=== PATIENT | male | born 1940 | race Caucasian/White ===

== ENCOUNTER 2016-06-22 21:41 | Emergency (ER) | payer MEDICARE, BC ==
[2016-06-22 22:13] VITALS: BP 140/65
--- NOTE | 2016-06-22 22:25 | EDM.PDOC ---
ED HPI Skin/Rash - General Chief Complaint: Laceration Stated Complaint: CUT LIP Time Seen by Provider: 06/22/16 22:17 Source: Reports: Patient History Limitations: Reports: No limitations - History of Present Illness INITIAL COMMENTS - FREE TEXT/NARRATIVE: This patient was playing pickle ball. He fell forward hitting his face against the ground and suffered a laceration to the inside of his lower lip. This happened just prior to arrival. There was no loss of consciousness he denies any neck pain - Related Data Allergies Allergy/AdvReac Type Severity Reaction Status Date / Time acetaminophen [From Percocet] Allergy Agitation Verified 06/22/16 22:08 oxycodone [From Percocet] Allergy Agitation Verified 06/22/16 22:08 Penicillins Allergy Itching Verified 06/22/16 22:08 Home Meds: Ambulatory Orders Medication Instructions Recorded Confirmed Aspirin [Lo-Dose Aspirin EC] 81 mg PO BEDTIME 06/22/16 06/22/16 Gabapentin [Gabapentin] 600 mg PO TID 06/22/16 06/22/16 Insulin Aspart [NovoLOG] 40 units SQ BID 06/22/16 06/22/16 Insulin Glarg,Human.Rec.Analog 20 unit SQ BID 06/22/16 06/22/16 [Lantus] Lisinopril [Lisinopril] 40 mg PO DAILY 06/22/16 06/22/16 Metoprolol Tartrate [Metoprolol 25 mg PO BID 06/22/16 06/22/16 Tartrate] metFORMIN HCl [Metformin HCl] 500 mg PO DAILY 06/22/16 06/22/16 Past Medical History Cardiovascular History: Reports: Afib, Hypertension Respiratory History: Reports: Bronchitis, recurrent Musculoskeletal History: Reports: Arthritis Endocrine/Metabolic History: Reports: Diabetes, type II - Infectious Disease History Infectious Disease History: Reports: Chicken pox, Measles, Mumps - Past Surgical History HEENT Surgical History: Reports: Cataract surgery, Laser surgery, Tonsillectomy Respiratory Surgical History: Reports: Other (see below) Other Respiratory Surgeries/Procedures: deviated septum GI Surgical History: Reports: Appendectomy, Cholecystectomy, Colostomy Social & Family History - Tobacco Use Smoking Status *Q: Never Smoker - Recreational Drug Use Recreational Drug Use: No ED ROS GENERAL - Review of Systems Review Of Systems: ROS reveals no pertinent complaints other than HPI. ED EXAM, SKIN/RASH Exam: See Below Exam Limited By: No limitations General Appearance: alert, WD/WN, no apparent distress Eye Exam: bilateral eye: normal inspection Throat/Mouth: Other (There is an irregular shallow laceration transverse approximately 1.5 cm long of the pupil surface of the lower well off the vermilion order. It does not appear to need suturing.) Course - Vital Signs Last Recorded V/S: Last Vital Signs Temp 36.2 C 06/22/16 22:15 Pulse 66 06/22/16 22:15 Resp 16 06/22/16 22:15 BP 140/65 06/22/16 22:15 Pulse Ox 99 06/22/16 22:15 Departure - Departure Time of Disposition: 22:23 Disposition: Home, Self-Care 01 Clinical Impression: Laceration of mouth Instructions: Mouth Laceration, [id number] Referrals: Cristofer West MD [Primary Care Provider] - Forms: ED Department Discharge Additional Instructions: The laceration in her mouth should heal just fine without suturing. Just wash your mouth out with salt water several times that day. One quarter teaspoon of regular table salt in 8 ounces of water is about right. It's just enough that she can taste the salt and this will keep it from burning. Avoid acidic or salty foods for a few days. And be sure to wash your mouth out after eating
== END 2016-06-22 22:45 | disposition home or self-care (01) ==
LOC: JP.ED 21:41
DX: S01.511A Laceration without foreign body of lip, initial encounter (principal); E11.9 Type 2 diabetes mellitus without complications; I48.91 Unspecified atrial fibrillation; Z88.0 Allergy status to penicillin; Z88.8 Allergy status to other drugs, medicaments and biological substances; Z88.5 Allergy status to narcotic agent; Z79.84 Long term (current) use of oral hypoglycemic drugs; Z90.49 Acquired absence of other specified parts of digestive tract; Z98.890 Other specified postprocedural states; W19.XXXA Unspecified fall, initial encounter
CPT/HCPCS: 99282; 99283

== ENCOUNTER 2017-06-02 15:52 | Emergency (ER) | payer MEDICARE, BC ==
[2017-06-02] MEDS ORDERED: Ondansetron 4 MG/2 ML SDV IVPUSH ONE (16:52)
[2017-06-02] MEDS ORDERED: Sodium Chloride 0.9% 10 ML Syringe FLUSH PRN (16:52)
--- NOTE | 2017-06-02 16:56 | EDM.PDOC ---
ED HPI GENERAL MEDICAL PROBLEM - General Chief Complaint: Abdominal Pain Stated Complaint: abd pain Time Seen by Provider: 06/02/17 16:47 Source of Information: Reports: Patient, Family, RN Notes Reviewed History Limitations: Reports: No Limitations - History of Present Illness INITIAL COMMENTS - FREE TEXT/NARRATIVE: 76-year-old gentleman presents to the emergency department today with complaint of abdominal pain, he states he's had abdominal pain for the last couple of days has progressively gotten worse it is predominantly in the left lower quadrant he had normal bowel movements today however did not pass any gas he feels nauseated no fevers does have a history of a cholecystectomy - Related Data Allergies Allergy/AdvReac Type Severity Reaction Status Date / Time acetaminophen [From Percocet] Allergy Agitation Verified 06/22/16 22:08 oxycodone [From Percocet] Allergy Agitation Verified 06/22/16 22:08 Penicillins Allergy Itching Verified 06/22/16 22:08 Home Meds: Home Meds Aspirin [Lo-Dose Aspirin EC] 81 mg PO BEDTIME 06/22/16 [History] Gabapentin [Gabapentin] 600 mg PO TID 06/22/16 [History] Insulin Aspart [NovoLOG] 40 units SQ BID 06/22/16 [History] Insulin Glarg,Human.Rec.Analog [Lantus] 20 unit SQ BID 06/22/16 [History] Lisinopril [Lisinopril] 40 mg PO DAILY 06/22/16 [History] Metoprolol Tartrate [Metoprolol Tartrate] 25 mg PO BID 06/22/16 [History] metFORMIN HCl [Metformin HCl] 500 mg PO DAILY 06/22/16 [History] Past Medical History Cardiovascular History: Reports: Afib, Hypertension Respiratory History: Reports: Bronchitis, Recurrent Musculoskeletal History: Reports: Arthritis Endocrine/Metabolic History: Reports: Diabetes, Type II - Infectious Disease History Infectious Disease History: Reports: Chicken Pox, Measles, Mumps - Past Surgical History HEENT Surgical History: Reports: Cataract Surgery, Laser Surgery, Tonsillectomy Respiratory Surgical History: Reports: Other (See Below) GI Surgical History: Reports: Appendectomy, Cholecystectomy, Colostomy Social & Family History - Tobacco Use Smoking Status *Q: Never Smoker - Recreational Drug Use Recreational Drug Use: No ED ROS GENERAL - Review of Systems Review Of Systems: See Below Constitutional: Denies: Fever, Chills HEENT: Reports: No Symptoms Respiratory: Reports: No Symptoms Cardiovascular: Reports: No Symptoms GI/Abdominal: Reports: Abdominal Pain, Nausea. Denies: Constipation, Diarrhea, Flatus, Vomiting : Reports: No Symptoms Musculoskeletal: Reports: No Symptoms Skin: Reports: Dryness Neurological: Reports: No Symptoms ED EXAM, GI/ABD - Physical Exam Exam: See Below Text/Narrative:: General: Male, not in any distress, alert and oriented x3 HEENT: head is atraumatic normocephalic, eyes pupils equal round reactive to light, sclera clear no conjunctivitis appreciated. Ears tympanic membranes clear and helm landmarks and light reflex are present bilaterally canals are clear. Nose no septal deviation, nares are clear, no blood present. Mouth mucosa is moist and pink no erythema or exudate noted in soft palate, tongue is midline uvula is midline, dentition is intact. Neck: Supple no thyromegaly no tracheal deviation. Nodes: Cervical nodes subclavicular nodes nontender no palpable lymphadenopathy noted. Lungs: clear to auscultation bilaterally with symmetrical respirations, no adventitious noise appreciated. CV: Regular rate and rhythm S1 and S2 appreciated no murmurs rubs or gallops noted. Abdomen: Soft, tender to palpation left lower quadrant, no palpable masses or organomegaly appreciated, no distention no guarding bowel sounds are present, . Neuro: Cranial nerves II through XII grossly intact Skin: Warm and dry, intact Extremities: No lower extremity edema appreciated, Course - Vital Signs Last Recorded V/S: Last Vital Signs Temp 96.9 F 06/02/17 16:23 Pulse 66 06/02/17 17:52 Resp 16 06/02/17 17:52 BP 180/85 H 06/02/17 17:52 Pulse Ox 97 06/02/17 17:52 - Orders/Labs/Meds Orders: Active Orders 24 hr Category Date Time Status EKG Documentation Completion [RC] ASDIRECTED Care 06/02/17 17:37 Active Peripheral IV Care [RC] . DIRECTED Care 06/02/17 16:52 Active Abdomen Pelvis w Cont [CT] Urgent Exams 06/02/17 16:52 Taken Heparin Sodium/D5W [Heparin 25,000 Units in D5W 500 ML] Med 06/02/17 18:00 Ordered 25,000 units in 500 ml IV TITRATE Iopamidol [Isovue-300 (61%)] Med 06/02/17 17:01 Active 150 ml IV . DIRECTED PRN Sodium Chloride 0.9% [Normal Saline] 1,000 ml Med 06/02/17 17:00 Active IV ASDIRECTED Sodium Chloride 0.9% [Normal Saline] 85 ml Med 06/02/17 17:15 Active IV ASDIRECTED Sodium Chloride 0.9% [Saline Flush] Med 06/02/17 16:52 Active 10 ml FLUSH ASDIRECTED PRN Peripheral IV Insertion Adult [OM.PC] Urgent Oth 06/02/17 16:52 Ordered EKG 12 Lead [EK] Stat Ther 06/02/17 17:37 Ordered Medication Orders Sodium Chloride (Normal Saline) 1,000 mls @ 500 mls/hr IV ASDIRECTED CASEY Last Admin: 06/02/17 17:04 Dose: 500 mls/hr Sodium Chloride (Normal Saline) 85 mls @ 3.5 mls/sec IV ASDIRECTED CASEY Last Admin: 06/02/17 17:35 Dose: 3.5 mls/sec Heparin Sodium/Dextrose (Heparin 25,000 Units In D5w 500 Ml) 25,000 units in 500 mls @ 26.736 mls/hr IV TITRATE CASEY; 12 UNITS/KG/HR PRN Reason: Protocol Iopamidol (Isovue-300 (61%)) 150 ml IV . DIRECTED PRN PRN Reason: RADIOLOGY EXAM Stop: 06/03/17 17:02 Last Admin: 06/02/17 17:35 Dose: 150 ml Sodium Chloride (Saline Flush) 10 ml FLUSH ASDIRECTED PRN PRN Reason: Keep Vein Open Labs: Laboratory Tests 06/02/17 06/02/17 06/02/17 Range/Units 16:52 17:05 17:05 WBC 7.6 (4.5-11.0) K/uL RBC 5.12 (4.30-5.90) M/uL Hgb 16.3 H (12.0-15.0) g/dL Hct 45.2 (40.0-54.0) % MCV 88 (80-98) fL MCH 32 H (27-31) pg MCHC 36 (32-36) % Plt Count 147 L (150-400) K/uL Neut % (Auto) 70 H (36-66) % Lymph % (Auto) 19 L (24-44) % [place] % (Auto) 9 H (2-6) % Eos % (Auto) 1 L (2-4) % Baso % (Auto) 0 (0-1) % Sodium 134 L (140-148) mmol/L Potassium 4.1 (3.6-5.2) mmol/L Chloride 99 L (100-108) mmol/L Carbon Dioxide 26 (21-32) mmol/L Anion Gap 13.1 (5.0-14.0) mmol/L BUN 15 (7-18) mg/dL Creatinine 0.9 (0.8-1.3) mg/dL Est Cr Clr Drug Dosing 86.06 mL/min Estimated GFR (MDRD) > 60 (>60) Glucose 179 H (74-106) mg/dL Lactic Acid 2.0 (0.4-2.0) mmol/L Calcium 9.1 (8.5-10.1) mg/dL Total Bilirubin 1.0 (0.2-1.0) mg/dL AST 46 H (15-37) U/L ALT 72 (12-78) U/L Alkaline Phosphatase 67 (46-116) U/L Troponin I 0.236 H* (0.000-0.056) ng/mL Total Protein 6.6 (6.4-8.2) g/dL Albumin 3.5 (3.4-5.0) g/dL Globulin 3.1 (2.3-3.5) g/dL Albumin/Globulin Ratio 1.1 L (1.2-2.2) Lipase 154 (73-393) U/L Urine Color Urine Appearance Urine pH (4.5-8.0) Ur Specific [place] (1.008-1.030) Urine Protein (NEGATIVE) mg/dL Urine Glucose (UA) (NEGATIVE) mg/dL Urine Ketones (NEGATIVE) mg/dL Urine Occult Blood (NEGATIVE) Urine Nitrite (NEGAITVE) Urine Bilirubin (NEGATIVE) Urine Urobilinogen (NORMAL) mg/dL Ur Leukocyte Esterase (NEGATIVE) Urine RBC (0-5) Urine WBC (0-5) Ur Epithelial Cells Amorphous Sediment Urine Bacteria Urine Mucus 06/02/17 Range/Units 17:51 WBC (4.5-11.0) K/uL RBC (4.30-5.90) M/uL Hgb (12.0-15.0) g/dL Hct (40.0-54.0) % MCV (80-98) fL MCH (27-31) pg MCHC (32-36) % Plt Count (150-400) K/uL Neut % (Auto) (36-66) % Lymph % (Auto) (24-44) % [place] % (Auto) (2-6) % Eos % (Auto) (2-4) % Baso % (Auto) (0-1) % Sodium (140-148) mmol/L Potassium (3.6-5.2) mmol/L Chloride (100-108) mmol/L Carbon Dioxide (21-32) mmol/L Anion Gap (5.0-14.0) mmol/L BUN (7-18) mg/dL Creatinine (0.8-1.3) mg/dL Est Cr Clr Drug Dosing mL/min Estimated GFR (MDRD) (>60) Glucose (74-106) mg/dL Lactic Acid (0.4-2.0) mmol/L Calcium (8.5-10.1) mg/dL Total Bilirubin (0.2-1.0) mg/dL AST (15-37) U/L ALT (12-78) U/L Alkaline Phosphatase (46-116) U/L Troponin I (0.000-0.056) ng/mL Total Protein (6.4-8.2) g/dL Albumin (3.4-5.0) g/dL Globulin (2.3-3.5) g/dL Albumin/Globulin Ratio (1.2-2.2) Lipase (73-393) U/L Urine Color Yellow Urine Appearance Clear Urine pH 5.0 (4.5-8.0) Ur Specific [place] 1.015 (1.008-1.030) Urine Protein Negative (NEGATIVE) mg/dL Urine Glucose (UA) 100 H (NEGATIVE) mg/dL Urine Ketones Negative (NEGATIVE) mg/dL Urine Occult Blood Negative (NEGATIVE) Urine Nitrite Negative (NEGAITVE) Urine Bilirubin Negative (NEGATIVE) Urine Urobilinogen Normal (NORMAL) mg/dL Ur Leukocyte Esterase Negative (NEGATIVE) Urine RBC 0-5 (0-5) Urine WBC 0-5 (0-5) Ur Epithelial Cells Rare Amorphous Sediment Few Urine Bacteria Not seen Urine Mucus Few Meds: Medications Generic Name Dose Route Start Last Admin Trade Name Joelle PRN Reason Stop Dose Admin Sodium Chloride 1,000 mls @ 500 mls/hr 06/02/17 17:00 06/02/17 17:04 Normal Saline IV 500 mls/hr ASDIRECTED CASEY Administration Sodium Chloride 85 mls @ 3.5 mls/sec 06/02/17 17:15 06/02/17 17:35 Normal Saline IV 3.5 mls/sec ASDIRECTED CASEY Administration Heparin Sodium/Dextrose 25,000 units in 500 mls @ 26.736 mls/hr 06/02/17 18: 00 Heparin 25,000 Units In D5w 500 Ml IV TITRATE CASEY Protocol 12 UNITS/KG/HR Iopamidol 150 ml 06/02/17 17:01 06/02/17 17:35 Isovue-300 (61%) IV 06/03/17 17:02 150 ml . DIRECTED PRN Administration RADIOLOGY EXAM Sodium Chloride 10 ml 06/02/17 16:52 Saline Flush FLUSH ASDIRECTED PRN Keep Vein Open Discontinued Medications Generic Name Dose Route Start Last Admin Trade Name Joelle PRN Reason Stop Dose Admin Aspirin 324 mg 06/02/17 17:48 Aspirin PO 06/02/17 17:49 ONETIME ONE Clopidogrel Bisulfate 300 mg 06/02/17 17:48 Plavix PO 06/02/17 17:49 ONETIME ONE Heparin Sodium (Porcine) 0 units 06/02/17 17:48 Heparin Sodium IVPUSH 06/02/17 17:49 .BOLUS ONE Metoprolol Tartrate 25 mg 06/02/17 17:48 Lopressor PO 06/02/17 17:49 ONETIME ONE Metoprolol Tartrate Confirm 06/02/17 18:08 Lopressor Administered 06/02/17 18:09 Dose 25 mg .ROUTE .STK-MED ONE Ondansetron HCl 4 mg 06/02/17 16:52 06/02/17 17:04 Zofran IVPUSH 06/02/17 16:53 4 mg ONETIME ONE Administration Sodium Chloride 10 ml 06/02/17 17:01 06/02/17 17:35 Saline Flush FLUSH 06/02/17 17:02 10 ml ONETIME ONE Administration Departure - Departure Time of Disposition: 18:14 Disposition: DC/Tfer to Acute Hospital 02 Condition: Fair Clinical Impression: Elevated troponin, Superior mesenteric vein thrombosis - Discharge Information Referrals: Cristofer West MD [Primary Care Provider] - Forms: ED Department Discharge - My Orders Last 24 Hours: My Active Orders 06/02/17 16:52 Peripheral IV Care [RC] . DIRECTED Abdomen Pelvis w Cont [CT] Urgent Sodium Chloride 0.9% [Saline Flush] 10 ml FLUSH ASDIRECTED PRN Peripheral IV Insertion Adult [OM.PC] Urgent 06/02/17 17:00 Sodium Chloride 0.9% [Normal Saline] 1,000 ml IV ASDIRECTED 06/02/17 17:01 Iopamidol [Isovue-300 (61%)] 150 ml IV . DIRECTED PRN 06/02/17 17:15 Sodium Chloride 0.9% [Normal Saline] 85 ml IV ASDIRECTED 06/02/17 17:37 EKG Documentation Completion [RC] ASDIRECTED EKG 12 Lead [EK] Stat 06/02/17 18:00 Heparin Sodium/D5W [Heparin 25,000 Units in D5W 500 ML] 25,000 units in 500 ml IV TITRATE - Assessment/Plan Last 24 Hours: My Active Orders 06/02/17 16:52 Peripheral IV Care [RC] . DIRECTED Abdomen Pelvis w Cont [CT] Urgent Sodium Chloride 0.9% [Saline Flush] 10 ml FLUSH ASDIRECTED PRN Peripheral IV Insertion Adult [OM.PC] Urgent 06/02/17 17:00 Sodium Chloride 0.9% [Normal Saline] 1,000 ml IV ASDIRECTED 06/02/17 17:01 Iopamidol [Isovue-300 (61%)] 150 ml IV . DIRECTED PRN 06/02/17 17:15 Sodium Chloride 0.9% [Normal Saline] 85 ml IV ASDIRECTED 06/02/17 17:37 EKG Documentation Completion [RC] ASDIRECTED EKG 12 Lead [EK] Stat 06/02/17 18:00 Heparin Sodium/D5W [Heparin 25,000 Units in D5W 500 ML] 25,000 units in 500 ml IV TITRATE Plan: Assessment Acuity = acute Site and laterality = elevated troponin with thrombus in superior mesenteric vein Etiology = unclear etiology Manifestations = left lower quadrant pain Location of injury = Home Lab values = sodium low at 134 consistent hyponatremia, CBC is unremarkable, troponin elevated 0.236 EKG demonstrates normal sinus rhythm CT scan shows filling defect and superior mesenteric vein with bowel thickening: Left lower quadrant Plan Patient was given aspirin Plavix 4000 unit bolus heparin heparin drip will be initiated in route via EMS services called discussed case with Dr. Pena hospitalist stonemason [facility] kindly accepted the patient in transport will be transported via EMS ground This note was dictated using [employer] voice recognition software please call with any questions on syntax or kristy.
[2017-06-02] MEDS ORDERED: Sodium Chloride 0.9% 1,000 ML IV SCH (17:00)
[2017-06-02] MEDS ORDERED: Iopamidol 612 MG/ML 150 ML Bottle IV PRN (17:01)
[2017-06-02] MEDS: Sodium Chloride 0.9% 10 ML Syringe FLUSH ONE ×2 (17:04→17:35)
[2017-06-02] MEDS ORDERED: Aspirin 81 MG Tab.Chew PO ONE (17:48)
[2017-06-02] MEDS ORDERED: Metoprolol Tartrate 50 MG Tab PO ONE (17:48)
[2017-06-02] MEDS ORDERED: Heparin Sodium 5,000 Units/ML Vial IVPUSH ONE (17:48)
[2017-06-02] MEDS ORDERED: Clopidogrel 75 MG Tab PO ONE (17:48)
[2017-06-02] MEDS ORDERED: Heparin Sodium/D5W 25,000 UNITS/500 ML BAG IV SCH (18:00)
[2017-06-02] MEDS ORDERED: Metoprolol Tartrate 25 MG Tab ONE (18:08)
[2017-06-02 18:13] VITALS: BP 187/95
[2017-06-02] MEDS ORDERED: HYDROmorphone 1 MG/ML Syringe IVPUSH ONE (18:17)
== END 2017-06-02 18:59 ==
LOC: JP.ED 15:52
DX: I81 Portal vein thrombosis (principal); R79.89 Other specified abnormal findings of blood chemistry; E11.9 Type 2 diabetes mellitus without complications; I10 Essential (primary) hypertension; Z88.0 Allergy status to penicillin; Z88.8 Allergy status to other drugs, medicaments and biological substances; Z79.899 Other long term (current) drug therapy; Z79.4 Long term (current) use of insulin; Z79.82 Long term (current) use of aspirin; Z88.6 Allergy status to analgesic agent
CPT/HCPCS: 36415; 74177; 80053; 81001; 83605; 83690; 84484; 85025; 93005; 96361; 96374; 96375; 99285; A9270; J1170; J1644; J2405; J7030; J7040; J7050; 93010

== ENCOUNTER 2020-10-12 16:15 | Emergency (ER) | payer MEDICARE, BC ==
--- NOTE | 2020-10-12 17:43 | EDM.PDOC ---
ED HPI GENERAL MEDICAL PROBLEM - General Chief Complaint: General Stated Complaint: DIABETIC- WEAKNESS IN RIGHT LEG Time Seen by Provider: 10/12/20 17:15 Source of Information: Reports: Patient, RN History Limitations: Reports: No Limitations - History of Present Illness INITIAL COMMENTS - FREE TEXT/NARRATIVE: States he had a near fall this morning. He has been concerned that over the last couple of days he has had some weakness in his right lower leg. A year ago he had done some physical therapy and he thinks this had done him well. He has not noticed any recent changes in his cognition, speech, coordination, balance or functionality. His was concerned today that he was "dragging "his right foot behind him when he stood to walk to go to the bathroom. Patient's primary care provider is Dr. Kemp. He follows with him regularly. Patient does have a walker or cane but does not currently use one at this time. Onset: Gradual Onset Date: 10/10/20 Duration: Day(s):, Getting Worse (In his opinion it is more obvious to him) Location: Reports: Lower Extremity, Right Quality: Reports: Other (Weakness) Severity: Mild Improves with: Reports: None Worsens with: Reports: None Context: Reports: Exercise Associated Symptoms: Reports: Weakness. Denies: Confusion, Chest Pain, Cough, Diaphoresis, Fever/Chills, Headaches, Loss of Appetite, Malaise, Nausea/Vomiting Bilateral Foot Pain Score (Numeric/FACES): 8 - Related Data Allergies Allergy/AdvReac Type Severity Reaction Status Date / Time acetaminophen [From Percocet] Allergy Agitation Verified 10/12/20 16:29 oxycodone [From Percocet] Allergy Agitation Verified 10/12/20 16:29 Penicillins Allergy Itching Verified 10/12/20 16:29 Home Meds: Home Meds Aspirin [Lo-Dose Aspirin EC] 81 mg PO BEDTIME 06/22/16 [History] Gabapentin 600 mg PO BID 06/22/16 [History] Insulin Aspart [NovoLOG] 36 units SQ TID 06/22/16 [History] Doxazosin Mesylate [Cardura] 8 mg PO DAILY 10/12/20 [History] Insulin Degludec [Tresiba Flextouch U-200] 66 unit SQ Q12H 10/12/20 [History] Metoprolol Succinate [Toprol Xl] 50 mg PO BID 10/12/20 [History] Nitroglycerin [Nitrostat] 0.4 mg SL ASDIRECTED 10/12/20 [History] Rosuvastatin [Crestor] 10 mg PO DAILY 10/12/20 [History] Past Medical History Cardiovascular History: Reports: Afib, CAD, Hypertension, NH, Stents Respiratory History: Reports: Bronchitis, Recurrent Musculoskeletal History: Reports: Arthritis, Other (See Below) Other Musculoskeletal History: peripherial neuropathy Neurological History: Reports: Neuropathy, Peripheral Psychiatric History: Reports: Depression Endocrine/Metabolic History: Reports: Diabetes, Type II, Obesity/BMI 30+, Other (See Below) Other Endocrine/Metabolic History: mesenteric vein thrombosis - Infectious Disease History Infectious Disease History: Reports: Chicken Pox, Measles, Mumps - Past Surgical History HEENT Surgical History: Reports: Cataract Surgery, Laser Surgery, Tonsillectomy Respiratory Surgical History: Reports: Other (See Below) Other Respiratory Surgeries/Procedures: deviated septum GI Surgical History: Reports: Appendectomy, Cholecystectomy, Colostomy Social & Family History - Tobacco Use Tobacco Use Status *Q: Never Tobacco User Second Hand Smoke Exposure: No - Caffeine Use Caffeine Use: Reports: None - Recreational Drug Use Recreational Drug Use: No ED ROS GENERAL - Review of Systems Review Of Systems: See Below Constitutional: Reports: Weakness. Denies: Fatigue, Night Sweats, Diaphoresis HEENT: Reports: No Symptoms Respiratory: Reports: No Symptoms Cardiovascular: Reports: No Symptoms, Edema (Bilateral lower extremity) Endocrine: Reports: No Symptoms GI/Abdominal: Reports: No Symptoms : Reports: No Symptoms Musculoskeletal: Reports: Foot Pain (Neuropathy) Neurological: Reports: No Symptoms. Denies: Confusion, Dizziness, Headache, Numbness Psychiatric: Reports: No Symptoms Hematologic/Lymphatic: Reports: No Symptoms Immunologic: Reports: No Symptoms ED EXAM, GENERAL - Physical Exam Exam: See Below Exam Limited By: No Limitations General Appearance: Alert, WD/WN, No Apparent Distress Eye Exam: Bilateral Eye: EOMI, Normal Inspection, PERRL Ear Exam: Bilateral Ear: Auricle Normal, Canal Normal, TM normal Nose: Normal Inspection, Normal Mucosa, No Blood Throat/Mouth: Normal Inspection, Normal Lips, Normal Teeth, Normal Gums, Normal Oropharynx, Normal Voice, No Airway Compromise Head: Atraumatic, Normocephalic Neck: Normal Inspection, Supple, Non-Tender, Full Range of Motion Respiratory/Chest: No Respiratory Distress, Lungs Clear, Normal Breath Sounds, No Accessory Muscle Use, Chest Non-Tender Cardiovascular: Normal Peripheral Pulses, Regular Rate, Rhythm Peripheral Pulses: 2+: Carotid (L), Carotid (R), Radial (L), Radial (R), Posterior Tibial (L), Posterior Tibial (R) GI/Abdominal: Normal Bowel Sounds, Soft, Non-Tender Back Exam: Normal Inspection, Full Range of Motion Extremities: Pedal Edema. No: Kiki's Sign, Leg Pain Neurological: Alert, Oriented, CN II-XII Intact, Normal Cognition, Normal Reflexes, No Motor/Sensory Deficits Psychiatric: Normal Affect, Normal Mood Skin Exam: Warm, Dry, Intact, Normal Color, No Rash Lymphatic: No Adenopathy Course - Vital Signs Last Recorded V/S: Last Vital Signs Temp 36.5 C 10/12/20 16:49 Pulse 76 10/12/20 17:54 Resp 16 10/12/20 16:49 BP 167/81 H 10/12/20 17:54 Pulse Ox 95 10/12/20 17:54 - Orders/Labs/Meds Labs: Laboratory Tests 10/12/20 10/12/20 10/12/20 Range/Units 17:37 17:45 17:45 WBC 5.7 (4.5-11.0) K/uL RBC 4.51 (4.30-5.90) M/uL Hgb 14.2 D (12.0-15.0) g/dL Hct 41.8 (40.0-54.0) % MCV 93 (80-98) fL MCH 32 H (27-31) pg MCHC 34 (32-36) % Plt Count 129 L (150-400) K/uL Neut % (Auto) 63.5 (36-66) % Lymph % (Auto) 21.5 L (24-44) % [place] % (Auto) 12.4 H (2-6) % Eos % (Auto) 2.3 (2-4) % Baso % (Auto) 0.3 (0-1) % Sodium 141 (140-148) mmol/L Potassium 4.2 (3.6-5.2) mmol/L Chloride 103 (100-108) mmol/L Carbon Dioxide 26 (21-32) mmol/L Anion Gap 12.0 (5.0-14.0) mmol/L BUN 16 (7-18) mg/dL Creatinine 1.0 (0.8-1.3) mg/dL Est Cr Clr Drug Dosing 75.95 mL/min Estimated GFR (MDRD) > 60 (>60) Glucose 128 H (74-106) mg/dL Calcium 9.0 (8.5-10.1) mg/dL Urine Color Yellow (YELLOW) Urine Appearance Clear (CLEAR) Urine pH 6.0 (5.0-8.0) Ur Specific [place] 1.020 (1.008-1.030) Urine Protein Trace H (NEGATIVE) mg/dL Urine Glucose (UA) Negative (NEGATIVE) mg/dL Urine Ketones Negative (NEGATIVE) mg/dL Urine Occult Blood Negative (NEGATIVE) Urine Nitrite Negative (NEGATIVE) Urine Bilirubin Negative (NEGATIVE) Urine Urobilinogen 0.2 (0.2-1.0) EU/dL Ur Leukocyte Esterase Negative (NEGATIVE) Results returned without concern. Glucose slight elevation in head slight protein in his urine with his current diagnoses this is not concerning. Long conversation with patient and his patient wishes to go home and follow-up with primary care in the office. Patient would do well with physical therapy for some strengthening. He feels this would work well for him. Patient states he will use a cane or walker at home as appropriate. Departure - Departure Time of Disposition: 18:44 Disposition: Home, Self-Care 01 Condition: Good Clinical Impression: Weakness - Discharge Information *PRESCRIPTION DRUG MONITORING PROGRAM REVIEWED*: Not Applicable *COPY OF PRESCRIPTION DRUG MONITORING REPORT IN PATIENT GARIMA: Not Applicable Instructions: Weakness, [id number] Referrals: Cristofer West MD [Primary Care Provider] - Forms: ED Department Discharge Additional Instructions: Patient will use walker or cane due to weakness on right lower extremity. Patient will follow up with primary care provider for physical therapy referral. Sepsis Event Note (ED) - Evaluation Sepsis Screening Result: No Definite Risk - Focused Exam Vital Signs: Vital Signs Temp Pulse Resp BP Pulse Ox 10/12/20 17:54 76 167/81 H 95 10/12/20 16:49 36.5 C 84 16 170/93 H 97 10/12/20 16:31 36.5 C 84 16 170/93 H 97
[2020-10-12 17:56] VITALS: BP 167/81; PULSE 76
== END 2020-10-12 18:44 | disposition home or self-care (01) ==
LOC: JP.ED 16:15
DX: R53.1 Weakness (principal); I48.91 Unspecified atrial fibrillation; I25.10 Atherosclerotic heart disease of native coronary artery without angina pectoris; I10 Essential (primary) hypertension; I25.2 Old myocardial infarction; E11.42 Type 2 diabetes mellitus with diabetic polyneuropathy; M19.90 Unspecified osteoarthritis, unspecified site; E66.9 Obesity, unspecified; Z88.6 Allergy status to analgesic agent; Z88.5 Allergy status to narcotic agent; Z88.0 Allergy status to penicillin; Z95.5 Presence of coronary angioplasty implant and graft; Z79.82 Long term (current) use of aspirin; Z68.32 Body mass index [BMI] 32.0-32.9, adult
CPT/HCPCS: 36415; 80048; 81003; 85025; 99284

== ENCOUNTER 2021-03-25 12:20 | Emergency (ER) | payer MEDICARE, BC ==
[2021-03-25] MEDS ORDERED: Methocarbamol 500 MG Tab PO ONE (12:40)
[2021-03-25] MEDS ORDERED: 50% Dextrose in Water 50 ML Syringe IVPUSH PRN (13:48)
[2021-03-25] MEDS ORDERED: Glucagon,Human Recombinant 1 MG Vial IM PRN (13:48)
[2021-03-25] MEDS ORDERED: Insulin Regular, Human 100 Units/ML 3 ML Vial SUBCUT ONE (13:48)
--- NOTE | 2021-03-25 14:07 | CR ---
Lumbar Spine 2 or 3V CLINICAL HISTORY: Low back pain FINDINGS: The vertebral body heights are maintained. There is some diffuse spondylosis. There is disc space narrowing at L2-3, L3-4 and L5-S1. Patient has a levoscoliosis. 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
[2021-03-25] MEDS ORDERED: Ketorolac 30 MG/ML SDV IVPUSH ONE (14:51)
[2021-03-25 15:37] VITALS: BP 153/94; PULSE 87
--- NOTE | 2021-03-25 16:02 | EDM.PDOC ---
ED HPI GENERAL MEDICAL PROBLEM - General Chief Complaint: Back Pain or Injury Stated Complaint: [facility] Time Seen by Provider: 03/25/21 12:23 Source of Information: Reports: Patient, EMS History Limitations: Reports: No Limitations - History of Present Illness INITIAL COMMENTS - FREE TEXT/NARRATIVE: Cheryl is a 80-year-old male presenting to the ED via [facility] for evaluation of fall on the ice and low back pain. Patient was taking the garbage to his truck and had to go around to the passenger side slipping on the ice and falling under the truck. He had acute onset of low back pain and had to crawl back into the garage where he could call EMS. The patient has a history for diabetes and has peripheral neuropathy. He is fallen several times in the last couple of weeks due to the neuropathy. He is complaining of low back pain but denies any other symptoms at this time. Lower Back Pain Score (Numeric/FACES): 4 - Related Data Allergies Allergy/AdvReac Type Severity Reaction Status Date / Time acetaminophen [From Percocet] Allergy Agitation Verified 03/25/21 12:27 oxycodone [From Percocet] Allergy Agitation Verified 03/25/21 12:27 Penicillins Allergy Itching Verified 03/25/21 12:27 Home Meds: Home Meds Aspirin [Lo-Dose Aspirin EC] 81 mg PO BEDTIME 06/22/16 [History] Gabapentin 600 mg PO BID 06/22/16 [History] Insulin Aspart [NovoLOG] 18 units SQ TID 06/22/16 [History] Insulin Degludec [Tresiba Flextouch U-200] 38 unit SQ Q12H 10/12/20 [History] Nitroglycerin [Nitrostat] 0.4 mg SL ASDIRECTED 10/12/20 [History] Rosuvastatin [Crestor] 10 mg PO DAILY 10/12/20 [History] Apixaban [Eliquis] 5 mg PO BID 03/25/21 [History] Cholecalciferol (Vitamin D3) [Vitamin D3] 1,000 unit PO DAILY 03/25/21 [History] Lutein/Zeaxanthin [Lutein-Zeaxanthin 20-1 mg Sfgl] 1 each PO DAILY 03/25/21 [History] Magnesium Oxide [Magnesium] 400 mg PO DAILY 03/25/21 [History] Propylene Glycol/PEG 400/Pf [Systane 0.3-0.4% Eye Drops] 1 each OP DAILY 03/25/21 [History] Saw [place] Fruit [Saw [place]] 450 mg PO DAILY 03/25/21 [History] Ubidecarenone [Coenzyme Q10] 100 mg PO DAILY 03/25/21 [History] methocarbamoL [Methocarbamol] 750 mg PO QID PRN #28 tablet 03/25/21 [Rx] Past Medical History Cardiovascular History: Reports: Afib, CAD, Hypertension, [place], Stents Respiratory History: Reports: Bronchitis, Recurrent Musculoskeletal History: Reports: Arthritis, Other (See Below) Other Musculoskeletal History: peripherial neuropathy Neurological History: Reports: CVA, Neuropathy, Peripheral Psychiatric History: Reports: Depression Endocrine/Metabolic History: Reports: Diabetes, Type II, Obesity/BMI 30+, Other (See Below) Other Endocrine/Metabolic History: mesenteric vein thrombosis - Infectious Disease History Infectious Disease History: Reports: Chicken Pox, Measles, Mumps - Past Surgical History HEENT Surgical History: Reports: Cataract Surgery, Laser Surgery, Tonsillectomy Respiratory Surgical History: Reports: Other (See Below) Other Respiratory Surgeries/Procedures: deviated septum GI Surgical History: Reports: Appendectomy, Cholecystectomy, Colostomy Social & Family History - Tobacco Use Tobacco Use Status *Q: Never Tobacco User - Caffeine Use Caffeine Use: Reports: None - Recreational Drug Use Recreational Drug Use: No ED ROS GENERAL - Review of Systems Review Of Systems: See Below Constitutional: Reports: No Symptoms HEENT: Reports: No Symptoms Respiratory: Reports: No Symptoms Cardiovascular: Reports: No Symptoms GI/Abdominal: Reports: No Symptoms : Reports: No Symptoms Musculoskeletal: Reports: Back Pain (Low back pain) Neurological: Reports: No Symptoms Psychiatric: Reports: No Symptoms ED EXAM,LOWER BACK PAIN/INJURY - Physical Exam Exam: See Below Exam Limited By: No Limitations General Appearance: Alert, Anxious, Moderate Distress Head: Atraumatic, Normocephalic Neck: Normal Inspection, Supple, Non-Tender Respiratory/Chest: No Respiratory Distress, Lungs Clear, Normal Breath Sounds Cardiovascular: Normal Peripheral Pulses, Regular Rate, Rhythm, No Murmur Back Exam: Decreased Range of Motion (To pain and spasm of the lumbar muscles), Muscle Spasm (Bilateral paraspinal muscle spasm), Paraspinal Tenderness (Bilateral lumbar paraspinal tenderness). No: Vertebral Tenderness Extremities: Normal Inspection Neurological: Alert, Normal Mood/Affect, No Motor/Sensory Deficits, Oriented x 3 Course - Vital Signs Last Recorded V/S: Last Vital Signs Temp 36.6 C 03/25/21 12:22 Pulse 87 03/25/21 15:37 Resp 16 03/25/21 12:22 BP 153/94 H 03/25/21 15:37 Pulse Ox 95 03/25/21 12:22 - Orders/Labs/Meds Orders: Active Orders 24 hr Category Date Time Status Dextrose 50% in Water Med 03/25/21 13:48 Active 50 ml IVPUSH ASDIRECTED PRN Glucagon,Human Recombinant [GlucaGen] Med 03/25/21 13:48 Active 1 mg IM ASDIRECTED PRN Medication Orders Dextrose/Water (50% Dextrose In Water 50 Ml Syringe) 50 ml IVPUSH ASDIRECTED PRN PRN Reason: Hypoglycemia Glucagon (Glucagon,Human Recombinant 1 Mg Vial) 1 mg IM ASDIRECTED PRN PRN Reason: Hypoglycemia Meds: Medications Generic Name Dose Route Start Last Admin Trade Name Freq PRN Reason Stop Dose Admin Dextrose/Water 50 ml 03/25/21 13:48 50% Dextrose In Water 50 Ml Syringe IVPUSH ASDIRECTED PRN Hypoglycemia Glucagon 1 mg 03/25/21 13:48 Glucagon,Human Recombinant 1 Mg Vial IM ASDIRECTED PRN Hypoglycemia Discontinued Medications Generic Name Dose Route Start Last Admin Trade Name Freq PRN Reason Stop Dose Admin Insulin Human Regular 18 unit 03/25/21 13:48 03/25/21 14:05 Insulin Regular, Human 100 Units/Ml 3 Ml Vial SUBCUT 03/25/21 13:49 18 units ONETIME ONE Administration Ketorolac Tromethamine 15 mg 03/25/21 14:51 03/25/21 15:06 Ketorolac 30 Mg/Ml Sdv IVPUSH 03/25/21 14:52 15 mg ONETIME ONE Administration Methocarbamol 500 mg 03/25/21 12:40 03/25/21 12:52 Methocarbamol 500 Mg Tab PO 03/25/21 12:41 500 mg ONETIME ONE Administration Departure - Departure Time of Disposition: 16:01 Disposition: Home, Self-Care 01 Clinical Impression: Fall due to ice or snow Qualifiers: Encounter type: initial encounter Qualified Code(s): W00.9XXA - Unspecified fall due to ice and snow, initial encounter Acute low back pain Qualifiers: Back pain laterality: bilateral Sciatica presence: without sciatica Qualified Code(s): M54.50 - Low back pain, unspecified - Discharge Information Instructions: Fall Prevention in the Home, Adult, [id number], Acute Back Pain, Adult Referrals: PCP,Unknown [Primary Care Provider] - Care Plan Goals: Your work-up today shows that 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 I am putting you on methocarbamol which is a potent nonsedating muscle relaxant that you can take up to 4 times a day. In addition I am sending you home with a prescription for hydrocodone for severe pain. You may use Tylenol in the interim for mild to moderate pain. I encourage you to ice the low back alternating with heat over the next couple of days. If you develop any difficulty with passing your water or stool, any saddle anesthesia meaning [id number] in the groin, or difficulty with walking please return immediately to the ER for reevaluation. Sepsis Event Note (ED) - Evaluation Sepsis Screening Result: No Definite Risk - Focused Exam Vital Signs: Vital Signs Temp Pulse Resp BP Pulse Ox 03/25/21 15:37 87 153/94 H 03/25/21 12:22 36.6 C 90 16 156/93 H 95 - Problem List & Annotations (1) Acute low back pain SNOMED Code(s): 864969265 Code(s): M54.50 - LOW BACK PAIN, UNSPECIFIED Status: Acute Priority: Medium Current Visit: Yes Qualifiers: Back pain laterality: bilateral Sciatica presence: without sciatica Qualified Code(s): M54.50 - Low back pain, unspecified (2) Fall due to ice or snow SNOMED Code(s): 663253749 Code(s): W00.9XXA - UNSPECIFIED FALL DUE TO ICE AND SNOW, INITIAL ENCOUNTER Status: Acute Priority: Medium Current Visit: Yes Qualifiers: Encounter type: initial encounter Qualified Code(s): W00.9XXA - Unspecified fall due to ice and snow, initial encounter - Problem List Review Problem List Initiated/Reviewed/Updated: Yes - My Orders Last 24 Hours: My Active Orders 03/25/21 13:48 Dextrose 50% in Water 50 ml IVPUSH ASDIRECTED PRN Glucagon,Human Recombinant [GlucaGen] 1 mg IM ASDIRECTED PRN - Assessment/Plan Last 24 Hours: My Active Orders 03/25/21 13:48 Dextrose 50% in Water 50 ml IVPUSH ASDIRECTED PRN Glucagon,Human Recombinant [GlucaGen] 1 mg IM ASDIRECTED PRN
== END 2021-03-25 16:25 | disposition home or self-care (01) ==
LOC: JP.ED 12:20
DX: M54.50 Low back pain, unspecified (principal); G89.11 Acute pain due to trauma; I48.91 Unspecified atrial fibrillation; I25.10 Atherosclerotic heart disease of native coronary artery without angina pectoris; I10 Essential (primary) hypertension; I25.2 Old myocardial infarction; E11.42 Type 2 diabetes mellitus with diabetic polyneuropathy; E66.9 Obesity, unspecified; Z68.30 Body mass index [BMI] 30.0-30.9, adult; Z86.73 Personal history of transient ischemic attack (TIA), and cerebral infarction without residual deficits; Z95.5 Presence of coronary angioplasty implant and graft; Z88.0 Allergy status to penicillin; Z88.5 Allergy status to narcotic agent; Z88.8 Allergy status to other drugs, medicaments and biological substances
CPT/HCPCS: 72100; 96374; 99284; A9270; J1815; J1885

== ENCOUNTER 2023-04-24 09:03 | Day surgery (SDC) | payer MEDICARE, BC ==
[2023-04-24] MEDS ORDERED: fentaNYL 100 MCG/2 ML SDV ONE (09:22)
[2023-04-24] MEDS ORDERED: Propofol 200 MG/20 ML SDV ONE (09:23)
[2023-04-24] MEDS ORDERED: Lactated Ringers 1,000 ML IV SCH (11:45)
[2023-04-24 13:41] VITALS: BP 142/76; PULSE 72
== END 2023-04-24 12:45 | disposition home or self-care (01) ==
LOC: JP.SDS 09:03
PROVIDERS: ATTEND Student in an Organized Health Care Education/Training Program
DX: Z12.11 Encounter for screening for malignant neoplasm of colon (principal); Z53.8 Procedure and treatment not carried out for other reasons
CPT/HCPCS: 93005; J2704; J3010

== ENCOUNTER 2023-04-25 06:41 | Day surgery (SDC) | payer MEDICARE, BC ==
[2023-04-25] MEDS ORDERED: fentaNYL 100 MCG/2 ML SDV ONE (06:54)
[2023-04-25] MEDS ORDERED: Propofol 200 MG/20 ML SDV ONE (06:54)
[2023-04-25] MEDS: Dextrose 5%-Lactated Ringers 1,000 ML IV SCH (07:34)
[2023-04-25 09:30] VITALS: BP 114/72; PULSE 85
[2023-04-25] MEDS ORDERED: Dextrose 5%-Lactated Ringers 1,000 ML IV SCH (09:30)
== END 2023-04-25 09:38 | disposition home or self-care (01) ==
LOC: JP.SDS 06:41
PROVIDERS: ATTEND Family Medicine
DX: D12.2 Benign neoplasm of ascending colon (principal); E11.9 Type 2 diabetes mellitus without complications; I10 Essential (primary) hypertension; I25.2 Old myocardial infarction; I25.10 Atherosclerotic heart disease of native coronary artery without angina pectoris; I48.91 Unspecified atrial fibrillation; Z79.01 Long term (current) use of anticoagulants; Z95.5 Presence of coronary angioplasty implant and graft; Z88.0 Allergy status to penicillin; Z88.2 Allergy status to sulfonamides
CPT/HCPCS: 45380; J2704; J3010; J7121

== ENCOUNTER 2023-06-22 08:01 | Inpatient (IN) | payer MEDICARE, BC ==
[2023-06-22 08:23] LABS: BASOPHILS PERCENT AUTO 0.3 % (0.1-1.3); EOSINOPHILS ABSOLUTE AUTO 0.06 K/uL (0.00-0.40); EOSINOPHILS PERCENT AUTO 0.8 % (0.0-5.4); HEMATOCRIT 45.6 % (38.4-49.7); HEMOGLOBIN 15.7 g/dL (12.9-16.9); IMMATURE GRAN ABSOLUTE AUTO 0.05 K/uL (0.00-0.23); IMMATURE GRAN PERCENT AUTO 0.7 % (0.0-0.7); LYMPHOCYTES ABSOLUTE AUTO 1.17 K/uL (0.8-3.3); LYMPHOCYTES PERCENT AUTO 15.9 % (11.4-47.7); MEAN CORPUSCULAR HEMOGLOBIN 30.8 pg (31.6-35.5); MEAN CORPUSCULAR HGB CONC 34.4 g/dL (31.6-35.5); MEAN CORPUSCULAR VOLUME 89.4 fL (81.4-99.0); MONOCYTES ABSOLUTE AUTO 0.55 K/uL (0.20-0.90); MONOCYTES PERCENT AUTO 7.5 % (3.3-12.6); NEUTROPHILS ABSOLUTE AUTO 5.49 K/uL (1.0-7.6); NEUTROPHILS PERCENT AUTO 74.8 % (40.0-78.1); PLATELET COUNT,PLT 130 K/uL (130-375); WHITE BLOOD CELL COUNT,WBC 7.3 K/uL (3.2-11.0)
[2023-06-22 08:25] LABS: BASOPHILS ABSOLUTE AUTO 0.02 K/uL (0.00-0.10)
[2023-06-22 08:45] LABS: INR 1.2; PROTHROMBIN TIME 11.7 sec (9.2-10.6)
[2023-06-22 08:47] LABS: A/G RATIO 0.8 (1.2-2.2); ALANINE AMINOTRANSFERASE,ALT 28 U/L (12-78); ALBUMIN 3.2 g/dL (3.4-5.0); ALKALINE PHOSPHATASE 71 U/L (46-116); ASPARTATE AMNIOTRANSFERASE,AST 25 U/L (15-37); BILIRUBIN TOTAL 1.2 mg/dL (0.2-1.0); BLOOD UREA NITROGEN,BUN 15 mg/dL (7-18); CALCIUM 8.5 mg/dL (8.5-10.1); CARBON DIOXIDE,CO2 27 mmol/L (21-32); CHLORIDE,CL 101 mmol/L (100-108); ESTIMATED GFR 76 mL/min (>60); GLUCOSE RANDOM 252 mg/dL (74-106); POTASSIUM,K 4.2 mmol/L (3.6-5.2); PROTEIN TOTAL,TP 7.1 g/dL (6.4-8.2); SODIUM,NA 135 mmol/L (140-148)
[2023-06-22 08:48] LABS: APPEARANCE,URINE CLEAR (CLEAR); BILIRUBIN,URINE NEGATIVE (NEGATIVE); COLOR,URINE YELLOW (YELLOW); GLUCOSE,URINE 100 mg/dL (NEGATIVE); KETONES,URINE NEGATIVE (NEGATIVE); LEUKOCYTE ESTERASE,URINE TRACE (NEGATIVE); NITRITE,URINE NEGATIVE (NEGATIVE); OCCULT BLOOD,URINE TRACE-LYSED (NEGATIVE); PH,URINE 5.5 (5.0-8.0); PROTEIN,URINE 100 mg/dL (NEGATIVE)
[2023-06-22 08:49] LABS: ANION GAP 11.2 mmol/L (5.0-14.0)
[2023-06-22 08:57] LABS: AMORPHOUS SEDIMENT,URINE RARE; BACTERIA,URINE NOT SEEN; EPITHELIAL CELLS,URINE NOT SEEN; MUCUS,URINE NOT SEEN; RBC,URINE 0-5 (0-5); WBC,URINE NOT SEEN (0-5)
[2023-06-22] MEDS: Sodium Chloride 0.9% 1,000 ML IV ONE (09:33)
[2023-06-22] MEDS ORDERED: 50% Dextrose in Water 50 ML Syringe IVPUSH PRN ×2 (10:22→14:00)
[2023-06-22] MEDS ORDERED: Glucagon,Human Recombinant 1 MG Vial IM PRN ×2 (10:22→14:00)
[2023-06-22] MEDS: Albuterol/Ipratropium 3.0-0.5 MG/3 ML Neb Soln NEB ONE (10:25)
[2023-06-22] MEDS: Furosemide 20 MG/2 ML VIAL IVPUSH ONE (10:25)
[2023-06-22] MEDS: Sodium Chloride 0.9% 10 ML Syringe FLUSH PRN (10:58)
[2023-06-22] MEDS: Sodium Chloride 0.9% 80 ML IV ONE (10:58)
[2023-06-22] MEDS: Iopamidol 755 Mg/ML 100 ML Bottle IV SCH (10:59)
[2023-06-22] MEDS: Insulin Regular, Human 100 Units/ML 3 ML Vial SUBCUT ONE (11:42)
[2023-06-22] MEDS ORDERED: Polyethylene Glycol 3350 Powder 17 GM Packet PO PRN (14:00)
[2023-06-22] MEDS ORDERED: Sodium Chloride 0.9% 10 ML Syringe FLUSH PRN (14:00)
[2023-06-22 14:33] LABS: CORONAVIRUS COVID-19 NAA NEGATIVE (NEGATIVE); INFLUENZA A NAA NEGATIVE (NEGATIVE); INFLUENZA B NAA NEGATIVE (NEGATIVE); RESPIRATORY SYNCYTIAL VIR NAA NEGATIVE (NEGATIVE)
[2023-06-22] MEDS: Diltiazem 25 MG/5 ML SDV IVPUSH ONE (15:51)
[2023-06-22] MEDS: Diltiazem 100 MG in Sodium Chloride 0.9% 100 ML IV SCH (16:15)
[2023-06-22] MEDS: metFORMIN 500 MG Tab PO SCH (17:16)
[2023-06-22] MEDS: Insulin Lispro 100 Unit/ML 3 ML KwikPen SUBCUT SCH ×2 (17:22→17:25)
[2023-06-22] MEDS: Acetaminophen 325 MG Tab PO PRN (17:33)
[2023-06-22] MEDS: Ondansetron 4 MG/2 ML SDV IV PRN (19:10)
[2023-06-22] MEDS: Furosemide 40 MG/4 ML VIAL IVPUSH SCH (19:39)
[2023-06-22] MEDS ORDERED: Apixaban 5 MG Tab PO SCH (21:00)
[2023-06-22] MEDS: Insulin Glargine,Human Rec. Analog 100 Units/ML 3 ML Pen SUBCUT SCH (21:12)
[2023-06-22] MEDS: Gabapentin 400 MG Cap PO SCH (21:13)
[2023-06-22] MEDS: Metoprolol Succinate 50 MG Tab.ER PO SCH (21:13)
[2023-06-22] MEDS: Aspirin 81 MG Tab.EC PO SCH (21:13)
[2023-06-23 04:48] LABS: HEMATOCRIT 42.3 % (38.4-49.7); HEMOGLOBIN 14.8 g/dL (12.9-16.9); MEAN CORPUSCULAR HEMOGLOBIN 31.2 pg (31.6-35.5); MEAN CORPUSCULAR VOLUME 89.2 fL (81.4-99.0); RED BLOOD CELL COUNT 4.74 M/uL (4.14-5.76); WHITE BLOOD CELL COUNT,WBC 18.4 K/uL (3.2-11.0)
[2023-06-23 05:33] LABS: CALCIUM 8.3 mg/dL (8.5-10.1); CREATININE 1.3 mg/dL (0.8-1.3); EST CRCL DRUG DOSING (CG) 52.69 mL/min; MAGNESIUM 1.8 mg/dL (1.8-2.4); POTASSIUM,K 4.4 mmol/L (3.6-5.2)
[2023-06-23 05:35] LABS: ANION GAP 14.4 mmol/L (5.0-14.0); TROPONIN I HIGH SENSITIVITY 274.3 pg/mL (<=60.3)
[2023-06-23] MEDS: Rosuvastatin 10 MG Tab PO SCH (08:40)
[2023-06-23] MEDS: Magnesium Oxide 400 MG Tab PO SCH (08:49)
[2023-06-23] MEDS: Gabapentin 300 MG Cap PO SCH (08:51)
[2023-06-23] MEDS: Heparin Sodium 5,000 Units/ML Vial SUBCUT SCH (08:59)
[2023-06-23] MEDS: Diltiazem 120 MG Cap.CD PO SCH (10:10)
[2023-06-23] MEDS: cefTRIAXone 1 GM in Sodium Chloride 0.9% 50 ML IV SCH (10:19)
[2023-06-23] MEDS: Doxycycline 100 MG in Sodium Chloride 0.9% 100 ML IV SCH (11:00)
[2023-06-23] MEDS: Sodium Chloride 0.9% 1,000 ML IV SCH (16:47)
[2023-06-23] MEDS: Insulin Lispro 100 Unit/ML 3 ML KwikPen SUBCUT ONE (18:16)
[2023-06-23] MEDS: Hypromellose 0.3% Ophth Soln 15 ML Bottle EYEBOTH PRN (20:45)
[2023-06-23] MEDS: Insulin Glargine,Human Rec. Analog 100 Units/ML 3 ML Pen SUBCUT ONE (21:33)
[2023-06-23] MEDS: Diltiazem IR 30 MG Tab PO ONE (23:16)
[2023-06-23] MEDS: Diltiazem 120 MG Cap.CD PO ONE (23:26)
[2023-06-24 05:37] LABS: HEMATOCRIT 40.5 % (38.4-49.7); HEMOGLOBIN 13.5 g/dL (12.9-16.9); MEAN CORPUSCULAR HEMOGLOBIN 31.1 pg (31.6-35.5); MEAN CORPUSCULAR HGB CONC 33.3 g/dL (31.6-35.5); MEAN CORPUSCULAR VOLUME 93.3 fL (81.4-99.0); RED BLOOD CELL COUNT 4.34 M/uL (4.14-5.76); WHITE BLOOD CELL COUNT,WBC 11.8 K/uL (3.2-11.0)
[2023-06-24 05:50] LABS: CREATININE 1.2 mg/dL (0.8-1.3); EST CRCL DRUG DOSING (CG) 57.08 mL/min; MAGNESIUM 1.8 mg/dL (1.8-2.4); POTASSIUM,K 4.7 mmol/L (3.6-5.2)
[2023-06-24] MEDS: Insulin Glargine,Human Rec. Analog 100 Units/ML 3 ML Pen SUBCUT SCH (11:46)
[2023-06-24] MEDS ORDERED: Naloxone 0.4 MG/ML SDV IVPUSH PRN (12:29)
[2023-06-24] MEDS ORDERED: oxyCODONE 5 MG Tab PO PRN (12:29)
[2023-06-24] MEDS: HYDROmorphone 0.5 MG/0.5 ML Syringe IVPUSH PRN (14:14)
[2023-06-24] MEDS: Insulin Lispro 100 Unit/ML 3 ML KwikPen SUBCUT SCH (17:13)
[2023-06-24] MEDS: Sodium Chloride 0.9% 1,000 ML IV SCH (18:27)
[2023-06-25 05:21] LABS: HEMATOCRIT 37.8 % (38.4-49.7); HEMOGLOBIN 12.2 g/dL (12.9-16.9); MEAN CORPUSCULAR HEMOGLOBIN 30.8 pg (31.6-35.5); MEAN CORPUSCULAR HGB CONC 32.3 g/dL (31.6-35.5); MEAN CORPUSCULAR VOLUME 95.5 fL (81.4-99.0); RED BLOOD CELL COUNT 3.96 M/uL (4.14-5.76); WHITE BLOOD CELL COUNT,WBC 9.4 K/uL (3.2-11.0)
[2023-06-25 05:27] LABS: CREATININE 0.8 mg/dL (0.8-1.3); EST CRCL DRUG DOSING (CG) 85.63 mL/min; POTASSIUM,K 4.3 mmol/L (3.6-5.2)
[2023-06-25 05:30] LABS: ANION GAP 11.3 mmol/L (5.0-14.0)
[2023-06-25] MEDS: Apixaban 2.5 MG Tab PO SCH (12:11)
[2023-06-25] MEDS: Sodium Chloride 0.9% 1,000 ML IV SCH (13:09)
[2023-06-25] MEDS ORDERED: Aloe Vera/Sodium Chloride Gel 14.1 GM Tube NAS PRN (14:02)
[2023-06-25] MEDS: Haloperidol Lactate 5 MG/ML SDV IVPUSH PRN (14:50)
[2023-06-25] MEDS: Insulin Glargine,Human Rec. Analog 100 Units/ML 3 ML Pen SUBCUT SCH (20:32)
[2023-06-26 06:07] LABS: HEMATOCRIT 36.7 % (38.4-49.7); MEAN CORPUSCULAR HGB CONC 32.7 g/dL (31.6-35.5); MEAN CORPUSCULAR VOLUME 94.8 fL (81.4-99.0); RED BLOOD CELL COUNT 3.87 M/uL (4.14-5.76); WHITE BLOOD CELL COUNT,WBC 7.2 K/uL (3.2-11.0)
[2023-06-26 06:22] LABS: CALCIUM 7.9 mg/dL (8.5-10.1); CREATININE 0.8 mg/dL (0.8-1.3); EST CRCL DRUG DOSING (CG) 54.86 mL/min; POTASSIUM,K 4.1 mmol/L (3.6-5.2)
[2023-06-26 06:41] LABS: ANION GAP 10.1 mmol/L (5.0-14.0)
[2023-06-26] MEDS: Dextrose 5% in Water 1,000 ML IV SCH (11:00)
[2023-06-26] MEDS: Acetaminophen 1,000 MG in Premix Bag 1 BAG IV PRN (11:47)
[2023-06-26] MEDS: Haloperidol Lactate 5 MG/ML SDV IM ONE (21:20)
[2023-06-26] MEDS: Metoprolol Tartrate 5 MG/5 ML SDV IVPUSH PRN (21:46)
[2023-06-27] MEDS: Dextrose 5% in Water 1,000 ML IV SCH (03:11)
[2023-06-27 05:40] LABS: BASOPHILS ABSOLUTE AUTO 0.06 K/uL (0.00-0.10); BASOPHILS PERCENT AUTO 0.7 % (0.1-1.3); EOSINOPHILS ABSOLUTE AUTO 0.21 K/uL (0.00-0.40); EOSINOPHILS PERCENT AUTO 2.6 % (0.0-5.4); HEMATOCRIT 39.1 % (38.4-49.7); HEMOGLOBIN 13.1 g/dL (12.9-16.9); IMMATURE GRAN ABSOLUTE AUTO 0.05 K/uL (0.00-0.23); IMMATURE GRAN PERCENT AUTO 0.6 % (0.0-0.7); LYMPHOCYTES ABSOLUTE AUTO 0.97 K/uL (0.8-3.3); LYMPHOCYTES PERCENT AUTO 11.8 % (11.4-47.7); MEAN CORPUSCULAR HEMOGLOBIN 30.9 pg (31.6-35.5); MEAN CORPUSCULAR HGB CONC 33.5 g/dL (31.6-35.5); MEAN CORPUSCULAR VOLUME 92.2 fL (81.4-99.0); MONOCYTES ABSOLUTE AUTO 0.74 K/uL (0.20-0.90); NEUTROPHILS ABSOLUTE AUTO 6.18 K/uL (1.0-7.6); NEUTROPHILS PERCENT AUTO 75.3 % (40.0-78.1); PLATELET COUNT,PLT 108 K/uL (130-375); RED BLOOD CELL COUNT 4.24 M/uL (4.14-5.76); WHITE BLOOD CELL COUNT,WBC 8.2 K/uL (3.2-11.0)
[2023-06-27 06:01] LABS: A/G RATIO 0.6 (1.2-2.2); ALANINE AMINOTRANSFERASE,ALT 37 U/L (12-78); ALBUMIN 2.3 g/dL (3.4-5.0); ALKALINE PHOSPHATASE 58 U/L (46-116); ASPARTATE AMNIOTRANSFERASE,AST 42 U/L (15-37); BILIRUBIN TOTAL 1.6 mg/dL (0.2-1.0); BLOOD UREA NITROGEN,BUN 18 mg/dL (7-18); CALCIUM 8.1 mg/dL (8.5-10.1); CARBON DIOXIDE,CO2 29 mmol/L (21-32); CREATININE 0.8 mg/dL (0.8-1.3); EST CRCL DRUG DOSING (CG) 85.63 mL/min; ESTIMATED GFR 89 mL/min (>60); GLUCOSE RANDOM 249 mg/dL (74-106); MAGNESIUM 1.9 mg/dL (1.8-2.4); PHOSPHORUS 2.6 mg/dL (2.5-4.9)
[2023-06-27 06:12] LABS: ANION GAP 9.9 mmol/L (5.0-14.0); CHLORIDE,CL 111 mmol/L (100-108); POTASSIUM,K 3.9 mmol/L (3.6-5.2); SODIUM,NA 146 mmol/L (140-148)
[2023-06-27] MEDS: Enoxaparin 120 MG/0.8 ML Syringe SUBCUT SCH (16:49)
[2023-06-27] MEDS: Digoxin 500 MCG/2 ML Amp IV SCH (16:51)
[2023-06-28 05:54] LABS: BASOPHILS ABSOLUTE AUTO 0.04 K/uL (0.00-0.10); BASOPHILS PERCENT AUTO 0.4 % (0.1-1.3); EOSINOPHILS ABSOLUTE AUTO 0.22 K/uL (0.00-0.40); EOSINOPHILS PERCENT AUTO 2.4 % (0.0-5.4); HEMATOCRIT 36.6 % (38.4-49.7); HEMOGLOBIN 12.3 g/dL (12.9-16.9); IMMATURE GRAN ABSOLUTE AUTO 0.05 K/uL (0.00-0.23); IMMATURE GRAN PERCENT AUTO 0.5 % (0.0-0.7); LYMPHOCYTES ABSOLUTE AUTO 1.12 K/uL (0.8-3.3); LYMPHOCYTES PERCENT AUTO 12.1 % (11.4-47.7); MEAN CORPUSCULAR HEMOGLOBIN 30.8 pg (31.6-35.5); MEAN CORPUSCULAR HGB CONC 33.6 g/dL (31.6-35.5); MEAN CORPUSCULAR VOLUME 91.7 fL (81.4-99.0); MONOCYTES ABSOLUTE AUTO 0.88 K/uL (0.20-0.90); MONOCYTES PERCENT AUTO 9.5 % (3.3-12.6); NEUTROPHILS ABSOLUTE AUTO 6.97 K/uL (1.0-7.6); NEUTROPHILS PERCENT AUTO 75.1 % (40.0-78.1); PLATELET COUNT,PLT 118 K/uL (130-375); RED BLOOD CELL COUNT 3.99 M/uL (4.14-5.76); WHITE BLOOD CELL COUNT,WBC 9.3 K/uL (3.2-11.0)
[2023-06-28 06:23] LABS: CALCIUM 8.4 mg/dL (8.5-10.1); CREATININE 0.9 mg/dL (0.8-1.3); EST CRCL DRUG DOSING (CG) 76.14 mL/min; MAGNESIUM 1.8 mg/dL (1.8-2.4); PHOSPHORUS 3.3 mg/dL (2.5-4.9)
[2023-06-28 06:58] LABS: BASE EXCESS ARTERIAL 3.2 mm/L; BICARBONATE,ARTERIAL 26.2 mmol/L (22.0-26.0); CARBOXYHEMOGLOBIN 4.3 % (0.0-1.6); METHEMOGLOBIN 0.9 %; PCO2 ARTERIAL 35.7 mmHg (35.0-42.0); PO2 ARTERIAL 81.5 mmHg (75.0-100.0); TOTAL HEMOGLOBIN 12.4 g/dL (13.5-18.0)
[2023-06-28] MEDS: Furosemide 20 MG/2 ML VIAL IVPUSH ONE (07:04)
[2023-06-28 07:22] LABS: LACTIC ACID 1.5 mmol/L (0.4-2.0)
[2023-06-28] MEDS ORDERED: Bisacodyl 10 MG Supp RECTAL ONE (10:30)
[2023-06-28] MEDS: Diltiazem 100 MG in Sodium Chloride 0.9% 100 ML IV SCH (10:30)
[2023-06-28] MEDS: Bisacodyl 10 MG Supp RECTAL ONE (11:30)
[2023-06-28] MEDS: Sodium Chloride 0.9% 1,000 ML IV SCH (17:04)
[2023-06-28 19:31] LABS: ALBUMIN 2.1 g/dL (3.4-5.0); ANION GAP 4.7 mmol/L (5.0-14.0); BLOOD UREA NITROGEN,BUN 17 mg/dL (7-18); CALCIUM 8.4 mg/dL (8.5-10.1); CARBON DIOXIDE,CO2 29 mmol/L (21-32); CHLORIDE,CL 108 mmol/L (100-108); CREATININE 0.9 mg/dL (0.8-1.3); EST CRCL DRUG DOSING (CG) 76.11 mL/min; ESTIMATED GFR 86 mL/min (>60); GLUCOSE RANDOM 178 mg/dL (74-106); PHOSPHORUS 3.8 mg/dL (2.5-4.9); POTASSIUM,K 3.9 mmol/L (3.6-5.2); SODIUM,NA 142 mmol/L (140-148)
[2023-06-28] MEDS ORDERED: Acetaminophen 120 MG Supp RECTAL PRN (20:04)
[2023-06-29 05:51] LABS: HEMOGLOBIN 11.7 g/dL (12.9-16.9); MEAN CORPUSCULAR HEMOGLOBIN 31.2 pg (31.6-35.5); MEAN CORPUSCULAR HGB CONC 34.4 g/dL (31.6-35.5); MEAN CORPUSCULAR VOLUME 90.7 fL (81.4-99.0); RED BLOOD CELL COUNT 3.75 M/uL (4.14-5.76); WHITE BLOOD CELL COUNT,WBC 9.2 K/uL (3.2-11.0)
[2023-06-29 05:52] LABS: BASE EXCESS VENOUS 3.1 mm/L; BICARBONATE,VENOUS 27.3 mmol/L; CARBOXYHEMOGLOBIN 4.7 % (0.0-1.6); METHEMOGLOBIN 0.7 %; O2 SATURATION VENOUS 90.5; OXYHEMOGLOBIN 85.6 %; PCO2 VENOUS 42.2 mm/Hg; PH,VENOUS 7.427 (7.350-7.450); PO2 VENOUS 60.2 mm/Hg; TOTAL HEMOGLOBIN 12.3 g/dL (13.5-18.0)
[2023-06-29 06:11] LABS: A/G RATIO 0.6 (1.2-2.2); ALANINE AMINOTRANSFERASE,ALT 28 U/L (12-78); ALBUMIN 1.9 g/dL (3.4-5.0); ALKALINE PHOSPHATASE 60 U/L (46-116); ANION GAP 6.8 mmol/L (5.0-14.0); ASPARTATE AMNIOTRANSFERASE,AST 27 U/L (15-37); BILIRUBIN DIRECT 0.33 mg/dL (0.0-0.2); BILIRUBIN INDIRECT 0.77; BILIRUBIN TOTAL 1.1 mg/dL (0.2-1.0); BLOOD UREA NITROGEN,BUN 17 mg/dL (7-18); CALCIUM 8.2 mg/dL (8.5-10.1); CARBON DIOXIDE,CO2 30 mmol/L (21-32); CHLORIDE,CL 108 mmol/L (100-108); CREATININE 0.8 mg/dL (0.8-1.3); EST CRCL DRUG DOSING (CG) 85.63 mL/min; ESTIMATED GFR 89 mL/min (>60); GLUCOSE RANDOM 152 mg/dL (74-106); MAGNESIUM 1.7 mg/dL (1.8-2.4); PHOSPHORUS 3.4 mg/dL (2.5-4.9); POTASSIUM,K 3.9 mmol/L (3.6-5.2); PROTEIN TOTAL,TP 5.1 g/dL (6.4-8.2); SODIUM,NA 145 mmol/L (140-148)
[2023-06-29] MEDS: Digoxin 500 MCG/2 ML Amp IVPUSH SCH (12:11)
[2023-06-29] MEDS: Furosemide 20 MG/2 ML VIAL IVPUSH ONE (13:58)
[2023-06-29] MEDS: 1: AA 5%/Calcium/D15W/Lytes 1,000 ML with MVI, Adult with Vitamin K 10 ML, Zinc/Copper/M IV SCH (17:00)
[2023-06-29] MEDS: Fat Emulsion 250 ML IV SCH (17:01)
[2023-06-29 18:01] LABS: ANION GAP 6.7 mmol/L (5.0-14.0); CALCIUM 8.2 mg/dL (8.5-10.1); CREATININE 0.8 mg/dL (0.8-1.3); EST CRCL DRUG DOSING (CG) 85.63 mL/min; POTASSIUM,K 3.7 mmol/L (3.6-5.2)
[2023-06-30 02:48] LABS: HEMATOCRIT 34.1 % (38.4-49.7); HEMOGLOBIN 11.7 g/dL (12.9-16.9); MEAN CORPUSCULAR HEMOGLOBIN 31.3 pg (31.6-35.5); MEAN CORPUSCULAR HGB CONC 34.3 g/dL (31.6-35.5); MEAN CORPUSCULAR VOLUME 91.2 fL (81.4-99.0); RED BLOOD CELL COUNT 3.74 M/uL (4.14-5.76); WHITE BLOOD CELL COUNT,WBC 8.5 K/uL (3.2-11.0)
[2023-06-30 03:17] LABS: ANION GAP 8.8 mmol/L (5.0-14.0); BLOOD UREA NITROGEN,BUN 18 mg/dL (7-18); C-REACTIVE PROTEIN 3.06 mg/dL (<0.50); CALCIUM 8.1 mg/dL (8.5-10.1); CARBON DIOXIDE,CO2 27 mmol/L (21-32); CHLORIDE,CL 106 mmol/L (100-108); CREATININE 0.9 mg/dL (0.8-1.3); EST CRCL DRUG DOSING (CG) 76.11 mL/min; ESTIMATED GFR 86 mL/min (>60); GLUCOSE RANDOM 293 mg/dL (74-106); PHOSPHORUS 2.8 mg/dL (2.5-4.9); POTASSIUM,K 3.8 mmol/L (3.6-5.2); SODIUM,NA 142 mmol/L (140-148)
[2023-06-30] MEDS: Potassium Chloride 10 MEQ in Premix Bag 1 BAG IV ONE (03:59)
[2023-06-30] MEDS: Magnesium Sulfate/Water 2 GM in Premix Bag 1 BAG IV ONE (04:28)
[2023-06-30] MEDS ORDERED: Propofol 200 MG/20 ML SDV ONE (07:18)
[2023-06-30] MEDS ORDERED: Midazolam 1 MG/ML 2 ML SDV ONE (07:18)
[2023-06-30] MEDS ORDERED: fentaNYL 100 MCG/2 ML SDV ONE (07:18)
[2023-06-30] MEDS: Bupivacaine 0.5% 50 ML MDV ONE (08:51)
[2023-06-30] MEDS ORDERED: Phenylephrine 1% 10 MG/ML SDV ONE (09:17)
[2023-06-30] MEDS: ceFAZolin 2 GM in Premix Bag 1 BAG IV ONE (11:10)
[2023-06-30] MEDS: VITAMIN K IV SCH (12:41)
[2023-06-30] MEDS: [UNRECOGNIZED DRUG - OTHER] IV SCH (12:41)
[2023-06-30] MEDS: CALCIUM IV SCH (12:41)
[2023-06-30] MEDS: LYTES IV SCH (12:41)
[2023-06-30] MEDS: MVI IV SCH (12:41)
[2023-06-30] MEDS: ceFAZolin 2 GM in Sodium Chloride 0.9% 50 ML IV SCH (17:41)
[2023-06-30] MEDS: Acetaminophen 650 MG Supp RECTAL PRN (17:54)
[2023-06-30] MEDS: HYDROmorphone 0.5 MG/0.5 ML Syringe IVPUSH PRN (19:38)
[2023-06-30] MEDS ORDERED: Enoxaparin 120 MG/0.8 ML Syringe SUBCUT SCH (21:00)
[2023-06-30] MEDS ORDERED: Heparin Sodium 5,000 Units/ML Vial SUBCUT SCH (21:00)
[2023-06-30] MEDS: Heparin Sodium 5,000 Units/ML Vial SUBCUT SCH (21:54)
[2023-07-01 06:59] LABS: HEMATOCRIT 32.8 % (38.4-49.7); HEMOGLOBIN 11.2 g/dL (12.9-16.9); MEAN CORPUSCULAR HEMOGLOBIN 31.1 pg (31.6-35.5); MEAN CORPUSCULAR HGB CONC 34.1 g/dL (31.6-35.5); MEAN CORPUSCULAR VOLUME 91.1 fL (81.4-99.0); RED BLOOD CELL COUNT 3.6 M/uL (4.14-5.76); WHITE BLOOD CELL COUNT,WBC 9.6 K/uL (3.2-11.0)
[2023-07-01 07:19] LABS: ALBUMIN 1.8 g/dL (3.4-5.0); BLOOD UREA NITROGEN,BUN 16 mg/dL (7-18); CALCIUM 7.9 mg/dL (8.5-10.1); CARBON DIOXIDE,CO2 27 mmol/L (21-32); CHLORIDE,CL 109 mmol/L (100-108); CREATININE 0.9 mg/dL (0.8-1.3); EST CRCL DRUG DOSING (CG) 76.11 mL/min; ESTIMATED GFR 86 mL/min (>60); PHOSPHORUS 2.2 mg/dL (2.5-4.9); PHOSPHORUS 2.3 mg/dL (2.5-4.9); POTASSIUM,K 4.4 mmol/L (3.6-5.2); SODIUM,NA 142 mmol/L (140-148)
[2023-07-01 07:20] LABS: ANION GAP 10.4 mmol/L (5.0-14.0); GLUCOSE RANDOM 406 mg/dL (74-106)
[2023-07-01] MEDS: Sodium Chloride 0.9% 100 ML ONE (09:16)
[2023-07-01] MEDS: Sodium Chloride 0.9% 250 ML IV SCH (09:34)
[2023-07-01] MEDS: VITAMIN K IV SCH (12:14)
[2023-07-01] MEDS: CALCIUM IV SCH (12:14)
[2023-07-01] MEDS: LYTES IV SCH (12:14)
[2023-07-01] MEDS: MVI IV SCH (12:14)
[2023-07-01] MEDS: [UNRECOGNIZED DRUG - OTHER] IV SCH (12:14)
[2023-07-01] MEDS: Insulin Lispro 100 Unit/ML 3 ML KwikPen SUBCUT SCH (14:50)
[2023-07-01] MEDS ORDERED: Zinc Oxide 20% Oint 56.7 GM Tube TOP PRN (20:06)
[2023-07-01] MEDS: Dimethicone 20%/Zinc Oxide 25% 56 GM Spray Bottle TOP PRN (20:31)
[2023-07-02 05:25] LABS: CALCIUM 8.3 mg/dL (8.5-10.1); CREATININE 0.9 mg/dL (0.8-1.3); EST CRCL DRUG DOSING (CG) 76.11 mL/min; MAGNESIUM 2.1 mg/dL (1.8-2.4); PHOSPHORUS 2.1 mg/dL (2.5-4.9); POTASSIUM,K 4.3 mmol/L (3.6-5.2)
[2023-07-02 05:35] LABS: ANION GAP 13.3 mmol/L (5.0-14.0)
[2023-07-02] MEDS ORDERED: Glucagon,Human Recombinant 1 MG Vial IM PRN ×2 (06:03→06:05)
[2023-07-02] MEDS ORDERED: 50% Dextrose in Water 50 ML Syringe IVPUSH PRN (06:05)
[2023-07-02] MEDS: Insulin Lispro 100 Units/ML 3 ML Vial SUBCUT ONE (06:12)
[2023-07-02] MEDS: Insulin Glargine,Human Rec. Analog 100 Units/ML 3 ML Pen SUBCUT SCH (08:51)
[2023-07-02] MEDS: Enoxaparin 120 MG/0.8 ML Syringe SUBCUT SCH (08:52)
[2023-07-02] MEDS: VITAMIN K IV SCH (11:15)
[2023-07-02] MEDS: LYTES IV SCH (11:15)
[2023-07-02] MEDS: [UNRECOGNIZED DRUG - OTHER] IV SCH (11:15)
[2023-07-02] MEDS: CALCIUM IV SCH (11:15)
[2023-07-02] MEDS: MVI IV SCH (11:15)
[2023-07-03] MEDS: Haloperidol Lactate 5 MG/ML SDV IM PRN (02:29)
[2023-07-03 05:01] LABS: HEMATOCRIT 32.6 % (38.4-49.7); HEMOGLOBIN 10.7 g/dL (12.9-16.9); MEAN CORPUSCULAR HEMOGLOBIN 30.7 pg (31.6-35.5); MEAN CORPUSCULAR HGB CONC 32.8 g/dL (31.6-35.5); MEAN CORPUSCULAR VOLUME 93.7 fL (81.4-99.0); RED BLOOD CELL COUNT 3.48 M/uL (4.14-5.76); WHITE BLOOD CELL COUNT,WBC 10.4 K/uL (3.2-11.0)
[2023-07-03 05:26] LABS: ALBUMIN 1.8 g/dL (3.4-5.0); BLOOD UREA NITROGEN,BUN 18 mg/dL (7-18); CALCIUM 8.4 mg/dL (8.5-10.1); CARBON DIOXIDE,CO2 26 mmol/L (21-32); CHLORIDE,CL 115 mmol/L (100-108); CREATININE 0.8 mg/dL (0.8-1.3); EST CRCL DRUG DOSING (CG) 85.63 mL/min; ESTIMATED GFR 89 mL/min (>60); GLUCOSE RANDOM 361 mg/dL (74-106); MAGNESIUM 1.9 mg/dL (1.8-2.4); PHOSPHORUS 2.5 mg/dL (2.5-4.9); SODIUM,NA 150 mmol/L (140-148)
[2023-07-03] MEDS: Insulin Glargine,Human Rec. Analog 100 Units/ML 3 ML Pen SUBCUT SCH (09:24)
[2023-07-03] MEDS ORDERED: Central Total Parenteral Nutrition Bag SCH (11:15)
[2023-07-03] MEDS ORDERED: Gadoteridol 279.3 MG/ML 20 ML SDV IV SCH (12:30)
[2023-07-03] MEDS: LYTES IV SCH (12:56)
[2023-07-03] MEDS: [UNRECOGNIZED DRUG - OTHER] IV SCH (12:56)
[2023-07-03] MEDS: CALCIUM IV SCH (12:56)
[2023-07-03] MEDS: MVI IV SCH (12:56)
[2023-07-03] MEDS: VITAMIN K IV SCH (12:56)
[2023-07-03] MEDS: Magnesium Sulfate/Water 2 GM in Premix Bag 1 BAG IV SCH (15:01)
[2023-07-04 06:13] LABS: HEMATOCRIT 31.7 % (38.4-49.7); HEMOGLOBIN 10.2 g/dL (12.9-16.9); MEAN CORPUSCULAR HEMOGLOBIN 30.7 pg (31.6-35.5); MEAN CORPUSCULAR HGB CONC 32.2 g/dL (31.6-35.5); MEAN CORPUSCULAR VOLUME 95.5 fL (81.4-99.0); RED BLOOD CELL COUNT 3.32 M/uL (4.14-5.76)
[2023-07-04 06:36] LABS: ALBUMIN 1.7 g/dL (3.4-5.0); BLOOD UREA NITROGEN,BUN 17 mg/dL (7-18); CALCIUM 8.3 mg/dL (8.5-10.1); CARBON DIOXIDE,CO2 26 mmol/L (21-32); CHLORIDE,CL 116 mmol/L (100-108); CREATININE 0.8 mg/dL (0.8-1.3); EST CRCL DRUG DOSING (CG) 85.63 mL/min; ESTIMATED GFR 89 mL/min (>60); GLUCOSE RANDOM 358 mg/dL (74-106); PHOSPHORUS 3.3 mg/dL (2.5-4.9); POTASSIUM,K 4.2 mmol/L (3.6-5.2); SODIUM,NA 152 mmol/L (140-148)
[2023-07-04 06:37] LABS: ANION GAP 14.2 mmol/L (5.0-14.0)
[2023-07-04] MEDS ORDERED: 1: Amino Acids 5%/Dextrose 15% 1,000 ML with MVI, Adult with Vitamin K 10 ML, Zinc/Copp IV SCH (13:45)
[2023-07-04] MEDS: 1: Amino Acids 5%/Dextrose 15% 1,000 ML with MVI, Adult with Vitamin K 10 ML, Zinc/Copp IV SCH (14:13)
[2023-07-04] MEDS: Fat Emulsion 100 ML IV SCH (17:20)
[2023-07-05 06:30] LABS: HEMOGLOBIN 10.8 g/dL (12.9-16.9); RED BLOOD CELL COUNT 3.51 M/uL (4.14-5.76)
[2023-07-05 06:31] LABS: MEAN CORPUSCULAR HEMOGLOBIN 30.8 pg (31.6-35.5); MEAN CORPUSCULAR HGB CONC 31.8 g/dL (31.6-35.5); MEAN CORPUSCULAR VOLUME 96.9 fL (81.4-99.0)
[2023-07-05 06:46] LABS: CHLORIDE,CL 116 mmol/L (100-108); POTASSIUM,K 4.1 mmol/L (3.6-5.2); SODIUM,NA 153 mmol/L (140-148)
[2023-07-05 06:47] LABS: A/G RATIO 0.5 (1.2-2.2); ALBUMIN 1.9 g/dL (3.4-5.0); ANION GAP 13.1 mmol/L (5.0-14.0); BILIRUBIN TOTAL 0.9 mg/dL (0.2-1.0); BLOOD UREA NITROGEN,BUN 19 mg/dL (7-18); CALCIUM 8.6 mg/dL (8.5-10.1); CARBON DIOXIDE,CO2 28 mmol/L (21-32); CREATININE 0.8 mg/dL (0.8-1.3); EST CRCL DRUG DOSING (CG) 85.63 mL/min; ESTIMATED GFR 89 mL/min (>60); GLUCOSE RANDOM 305 mg/dL (74-106); PHOSPHORUS 3.6 mg/dL (2.5-4.9); PROTEIN TOTAL,TP 5.6 g/dL (6.4-8.2)
[2023-07-05 06:48] LABS: ALANINE AMINOTRANSFERASE,ALT 81 U/L (12-78); ALKALINE PHOSPHATASE 78 U/L (46-116); ASPARTATE AMNIOTRANSFERASE,AST 51 U/L (15-37); DIGOXIN 0.41 ng/mL (0.90-2.00); MAGNESIUM 2.1 mg/dL (1.8-2.4)
[2023-07-05 08:01] LABS: INR 1.2; PROTHROMBIN TIME 11.6 sec (9.2-10.6)
[2023-07-05] MEDS: Bisacodyl 10 MG Supp RECTAL PRN (08:19)
[2023-07-05] MEDS: Dextrose 5% in Water 1,000 ML IV SCH (08:57)
[2023-07-05] MEDS: Lidocaine 4% Top Soln 50 ML Bottle MUCMEM ONE (12:12)
[2023-07-05] MEDS: Furosemide 20 MG/2 ML VIAL IVPUSH ONE (12:55)
[2023-07-05] MEDS: Lidocaine 2% Jelly 10 ML Urojet MUCMEM ONE (14:33)
[2023-07-05 17:26] LABS: CALCIUM 8.5 mg/dL (8.5-10.1); CREATININE 0.9 mg/dL (0.8-1.3); EST CRCL DRUG DOSING (CG) 76.11 mL/min; POTASSIUM,K 4.1 mmol/L (3.6-5.2)
[2023-07-05 17:27] LABS: ANION GAP 14.1 mmol/L (5.0-14.0)
[2023-07-05] MEDS: Furosemide 20 MG/2 ML VIAL IVPUSH SCH (18:13)
[2023-07-06 04:59] LABS: HEMATOCRIT 30.2 % (38.4-49.7); HEMOGLOBIN 9.7 g/dL (12.9-16.9); MEAN CORPUSCULAR HEMOGLOBIN 30.7 pg (31.6-35.5); MEAN CORPUSCULAR HGB CONC 32.1 g/dL (31.6-35.5); MEAN CORPUSCULAR VOLUME 95.6 fL (81.4-99.0); RED BLOOD CELL COUNT 3.16 M/uL (4.14-5.76); WHITE BLOOD CELL COUNT,WBC 8.1 K/uL (3.2-11.0)
[2023-07-06 05:20] LABS: A/G RATIO 0.6 (1.2-2.2); ALANINE AMINOTRANSFERASE,ALT 67 U/L (12-78); ALBUMIN 1.9 g/dL (3.4-5.0); ALKALINE PHOSPHATASE 77 U/L (46-116); ASPARTATE AMNIOTRANSFERASE,AST 42 U/L (15-37); BLOOD UREA NITROGEN,BUN 19 mg/dL (7-18); CALCIUM 8.3 mg/dL (8.5-10.1); CARBON DIOXIDE,CO2 30 mmol/L (21-32); CHLORIDE,CL 113 mmol/L (100-108); CREATININE 0.8 mg/dL (0.8-1.3); EST CRCL DRUG DOSING (CG) 85.63 mL/min; ESTIMATED GFR 89 mL/min (>60); GLUCOSE RANDOM 300 mg/dL (74-106); MAGNESIUM 1.8 mg/dL (1.8-2.4); PHOSPHORUS 3.4 mg/dL (2.5-4.9); POTASSIUM,K 3.6 mmol/L (3.6-5.2); PROTEIN TOTAL,TP 5.1 g/dL (6.4-8.2); SODIUM,NA 150 mmol/L (140-148)
[2023-07-06 05:30] LABS: ANION GAP 10.6 mmol/L (5.0-14.0)
[2023-07-06] MEDS: Lidocaine 2% Viscous Solution 15 ML UD PO ONE (14:30)
[2023-07-06] MEDS: Lidocaine 2% Viscous Solution 15 ML UD ONE (15:21)
[2023-07-06] MEDS ORDERED: Central Total Parenteral Nutrition Bag SCH (16:30)
[2023-07-07 04:50] LABS: HEMATOCRIT 30.3 % (38.4-49.7); HEMOGLOBIN 9.9 g/dL (12.9-16.9); MEAN CORPUSCULAR HGB CONC 32.7 g/dL (31.6-35.5); RED BLOOD CELL COUNT 3.19 M/uL (4.14-5.76); WHITE BLOOD CELL COUNT,WBC 9.3 K/uL (3.2-11.0)
[2023-07-07 05:10] LABS: CALCIUM 8.6 mg/dL (8.5-10.1); CREATININE 0.9 mg/dL (0.8-1.3); EST CRCL DRUG DOSING (CG) 76.11 mL/min; MAGNESIUM 1.8 mg/dL (1.8-2.4); POTASSIUM,K 3.8 mmol/L (3.6-5.2)
[2023-07-07 05:22] LABS: ANION GAP 9.8 mmol/L (5.0-14.0)
[2023-07-07] MEDS ORDERED: Metoprolol Tartrate 25 MG Tab PO SCH (08:30)
[2023-07-07] MEDS: Metoprolol Tartrate 25 MG Tab NGTUBE SCH (08:43)
[2023-07-07] MEDS: Diltiazem IR 30 MG Tab NGTUBE SCH (09:03)
[2023-07-07] MEDS ORDERED: Diltiazem IR 30 MG Tab PO SCH (10:00)
[2023-07-07] MEDS ORDERED: AMINO ACIDS IV SCH (13:30)
[2023-07-07] MEDS ORDERED: MVI IV SCH (13:30)
[2023-07-07] MEDS ORDERED: [UNRECOGNIZED DRUG - OTHER] IV SCH (13:30)
[2023-07-07] MEDS ORDERED: DEXTROSE 15% IV SCH (13:30)
[2023-07-07] MEDS ORDERED: VITAMIN K IV SCH (13:30)
[2023-07-07] MEDS: Furosemide 40 MG/4 ML VIAL IVPUSH SCH (14:24)
[2023-07-07] MEDS: Nystatin Topical Powder 15 GM Bottle TOP SCH (16:01)
[2023-07-07] MEDS: Insulin Glargine,Human Rec. Analog 100 Units/ML 3 ML Pen SUBCUT SCH (21:00)
[2023-07-08 06:32] LABS: CALCIUM 8.7 mg/dL (8.5-10.1); CREATININE 0.9 mg/dL (0.8-1.3); EST CRCL DRUG DOSING (CG) 76.11 mL/min; POTASSIUM,K 4.1 mmol/L (3.6-5.2)
[2023-07-08 06:40] LABS: ANION GAP 10.1 mmol/L (5.0-14.0)
[2023-07-08] MEDS ORDERED: 50% Dextrose in Water 50 ML Syringe IVPUSH PRN (08:10)
[2023-07-08] MEDS ORDERED: Glucagon,Human Recombinant 1 MG Vial IM PRN (08:10)
[2023-07-08] MEDS: Insulin Lispro 100 Unit/ML 3 ML KwikPen SUBCUT SCH (08:46)
[2023-07-08] MEDS: Fluticasone NASAL Spray 16 GM Bottle NASBOTH SCH (13:30)
[2023-07-08] MEDS: Saliva Substitute Oral Spray 120 ML Bottle MUCMEM PRN (14:19)
[2023-07-08] MEDS: Diltiazem IR 30 MG Tab NGTUBE SCH (16:59)
[2023-07-08] MEDS: metFORMIN 500 MG Tab PO SCH (17:05)
[2023-07-09] MEDS: Piperacillin/Tazobactam 3.375 GM in Sodium Chloride 0.9% 50 ML IV SCH (03:51)
[2023-07-09 03:58] LABS: ANION GAP 11.4 mmol/L (5.0-14.0); CALCIUM 8.7 mg/dL (8.5-10.1); CREATININE 1.1 mg/dL (0.8-1.3); EST CRCL DRUG DOSING (CG) 62.27 mL/min; POTASSIUM,K 4.3 mmol/L (3.6-5.2)
[2023-07-09 04:10] LABS: BASOPHILS ABSOLUTE AUTO 0.04 K/uL (0.00-0.10); BASOPHILS PERCENT AUTO 0.4 % (0.1-1.3); EOSINOPHILS PERCENT AUTO 0.9 % (0.0-5.4); HEMOGLOBIN 10.8 g/dL (12.9-16.9); IMMATURE GRAN ABSOLUTE AUTO 0.05 K/uL (0.00-0.23); IMMATURE GRAN PERCENT AUTO 0.5 % (0.0-0.7); LYMPHOCYTES ABSOLUTE AUTO 0.69 K/uL (0.8-3.3); LYMPHOCYTES PERCENT AUTO 6.3 % (11.4-47.7); MEAN CORPUSCULAR HGB CONC 32.7 g/dL (31.6-35.5); MEAN CORPUSCULAR VOLUME 97.9 fL (81.4-99.0); MONOCYTES ABSOLUTE AUTO 0.38 K/uL (0.20-0.90); MONOCYTES PERCENT AUTO 3.5 % (3.3-12.6); NEUTROPHILS ABSOLUTE AUTO 9.61 K/uL (1.0-7.6); NEUTROPHILS PERCENT AUTO 88.4 % (40.0-78.1); PLATELET COUNT,PLT 205 K/uL (130-375); RED BLOOD CELL COUNT 3.37 M/uL (4.14-5.76); WHITE BLOOD CELL COUNT,WBC 10.9 K/uL (3.2-11.0)
[2023-07-09] MEDS: Vancomycin 2 GM in Sodium Chloride 0.9% 500 ML IV ONE (04:45)
[2023-07-09] MEDS: Vancomycin 1 GM SDV ONE (05:55)
[2023-07-09] MEDS: Morphine 2 MG/ML SYRINGE IVPUSH ONE (09:51)
[2023-07-09] MEDS ORDERED: Cefepime 1 GM in Sodium Chloride 0.9% 50 ML IV SCH (10:00)
[2023-07-09] MEDS: Enoxaparin 100 MG/1 ML Syringe SUBCUT SCH (10:21)
[2023-07-09] MEDS: Morphine 2 MG/ML SYRINGE ONE (10:23)
[2023-07-09] MEDS: Meropenem 1 GM in Sodium Chloride 0.9% 100 ML IV SCH (10:37)
[2023-07-09] MEDS: Insulin Lispro 100 Unit/ML 3 ML KwikPen SUBCUT SCH (16:47)
[2023-07-09 17:13] LABS: BASE EXCESS ARTERIAL 3.8 mm/L; BICARBONATE,ARTERIAL 27.4 mmol/L (22.0-26.0); CARBOXYHEMOGLOBIN 2.2 % (0.0-1.6); METHEMOGLOBIN 0.4 %; O2 SATURATION ARTERIAL 98.9 % (95.0-98.0); OXYHEMOGLOBIN 96.3 %; TOTAL HEMOGLOBIN 11.3 g/dL (13.5-18.0)
[2023-07-09 17:30] LABS: CALCIUM 9.1 mg/dL (8.5-10.1); CREATININE 2.1 mg/dL (0.8-1.3); EST CRCL DRUG DOSING (CG) 32.62 mL/min; POTASSIUM,K 5.2 mmol/L (3.6-5.2)
[2023-07-09 17:31] LABS: ANION GAP 15.2 mmol/L (5.0-14.0)
[2023-07-09] MEDS: Sodium Chloride 0.9% 1,000 ML IV SCH (18:50)
[2023-07-09] MEDS: Metoprolol Tartrate 25 MG Tab NGTUBE SCH (19:48)
[2023-07-09 22:49] LABS: APPEARANCE,URINE CLEAR (CLEAR); BILIRUBIN,URINE NEGATIVE (NEGATIVE); COLOR,URINE YELLOW (YELLOW); GLUCOSE,URINE NEGATIVE (NEGATIVE); KETONES,URINE TRACE mg/dL (NEGATIVE); LEUKOCYTE ESTERASE,URINE NEGATIVE (NEGATIVE); NITRITE,URINE NEGATIVE (NEGATIVE); OCCULT BLOOD,URINE NEGATIVE (NEGATIVE); PH,URINE 5.5 (5.0-8.0); PROTEIN,URINE 30 mg/dL (NEGATIVE); UROBILINOGEN,URINE 0.2 EU/dL (0.2-1.0)
[2023-07-09 23:09] LABS: AMORPHOUS SEDIMENT,URINE MANY; BACTERIA,URINE FEW; EPITHELIAL CELLS,URINE FEW; MUCUS,URINE NOT SEEN; RBC,URINE 0-5 (0-5); WBC,URINE 0-5 (0-5)
[2023-07-10] MEDS: Morphine 2 MG/ML SYRINGE IVPUSH PRN (05:28)
[2023-07-10 05:42] LABS: BASE EXCESS ARTERIAL 4.3 mm/L; BICARBONATE,ARTERIAL 28.4 mmol/L (22.0-26.0); CARBOXYHEMOGLOBIN 1.9 % (0.0-1.6); METHEMOGLOBIN 0.6 %; OXYHEMOGLOBIN 97.3 %; PCO2 ARTERIAL 42.4 mmHg (35.0-42.0); TOTAL HEMOGLOBIN 10.2 g/dL (13.5-18.0)
[2023-07-10 05:47] LABS: O2 SATURATION ARTERIAL > 99.3 % (95.0-98.0)
[2023-07-10 06:27] LABS: A/G RATIO 0.5 (1.2-2.2); ALANINE AMINOTRANSFERASE,ALT 32 U/L (12-78); ALBUMIN 1.8 g/dL (3.4-5.0); ALKALINE PHOSPHATASE 92 U/L (46-116); ASPARTATE AMNIOTRANSFERASE,AST 20 U/L (15-37); BILIRUBIN TOTAL 0.7 mg/dL (0.2-1.0); BLOOD UREA NITROGEN,BUN 52 mg/dL (7-18); CALCIUM 8.3 mg/dL (8.5-10.1); CARBON DIOXIDE,CO2 31 mmol/L (21-32); CHLORIDE,CL 112 mmol/L (100-108); CREATININE 1.9 mg/dL (0.8-1.3); EST CRCL DRUG DOSING (CG) 36.07 mL/min; ESTIMATED GFR 35 mL/min (>60); GLUCOSE RANDOM 240 mg/dL (74-106); MAGNESIUM 2.2 mg/dL (1.8-2.4); POTASSIUM,K 4.3 mmol/L (3.6-5.2); PROTEIN TOTAL,TP 5.7 g/dL (6.4-8.2); SODIUM,NA 151 mmol/L (140-148)
[2023-07-10 06:28] LABS: ANION GAP 12.3 mmol/L (5.0-14.0)
[2023-07-10] MEDS: Dextrose 5% in Water 1,000 ML IV SCH ×2 (09:08→17:15)
[2023-07-10] MEDS: methylPREDNISolone Sodium Succinate 125 MG/2 ML SDV IVPUSH SCH (10:37)
[2023-07-10] MEDS: Meropenem 1 GM in Sodium Chloride 0.9% 100 ML IV SCH (14:17)
[2023-07-11] MEDS: Insulin Lispro 100 Unit/ML 3 ML KwikPen SUBCUT ONE ×3 (05:30→23:28)
[2023-07-11 07:04] LABS: CALCIUM 8.5 mg/dL (8.5-10.1); CREATININE 1.8 mg/dL (0.8-1.3); EST CRCL DRUG DOSING (CG) 38.07 mL/min; POTASSIUM,K 3.8 mmol/L (3.6-5.2)
[2023-07-11 07:07] LABS: HEMATOCRIT 28.5 % (38.4-49.7); HEMOGLOBIN 8.9 g/dL (12.9-16.9); MEAN CORPUSCULAR HEMOGLOBIN 31.3 pg (31.6-35.5); MEAN CORPUSCULAR HGB CONC 31.2 g/dL (31.6-35.5); MEAN CORPUSCULAR VOLUME 100.4 fL (81.4-99.0); RED BLOOD CELL COUNT 2.84 M/uL (4.14-5.76); WHITE BLOOD CELL COUNT,WBC 11.4 K/uL (3.2-11.0)
[2023-07-11] MEDS ORDERED: Glucagon,Human Recombinant 1 MG Vial IM PRN ×2 (08:03→15:40)
[2023-07-11] MEDS ORDERED: 50% Dextrose in Water 50 ML Syringe IVPUSH PRN ×2 (08:03→15:40)
[2023-07-11] MEDS: Sodium Chloride 0.45% with KCl 1,000 ML IV SCH (13:45)
[2023-07-11] MEDS: Haloperidol Lactate 5 MG/ML SDV IV PRN (15:56)
[2023-07-11] MEDS ORDERED: Insulin Lispro 100 Unit/ML 3 ML KwikPen SUBCUT ONE (23:19)
[2023-07-12] MEDS: methylPREDNISolone Sodium Succinate 40 MG/1 ML SDV IVPUSH SCH (01:29)
[2023-07-12 06:13] LABS: HEMATOCRIT 29.8 % (38.4-49.7); HEMOGLOBIN 9.4 g/dL (12.9-16.9); MEAN CORPUSCULAR HEMOGLOBIN 30.8 pg (31.6-35.5); MEAN CORPUSCULAR HGB CONC 31.5 g/dL (31.6-35.5); MEAN CORPUSCULAR VOLUME 97.7 fL (81.4-99.0); RED BLOOD CELL COUNT 3.05 M/uL (4.14-5.76); WHITE BLOOD CELL COUNT,WBC 12.2 K/uL (3.2-11.0)
[2023-07-12 06:24] LABS: CALCIUM 8.6 mg/dL (8.5-10.1); CREATININE 1.9 mg/dL (0.8-1.3); EST CRCL DRUG DOSING (CG) 36.07 mL/min; POTASSIUM,K 3.8 mmol/L (3.6-5.2)
[2023-07-12 06:35] LABS: ANION GAP 15.8 mmol/L (5.0-14.0)
[2023-07-12] MEDS: Enoxaparin 30 MG/0.3 ML Syringe SUBCUT SCH (08:38)
[2023-07-12] MEDS: Insulin Regular in 0.9 % NACL 100 ML IV SCH (14:53)
[2023-07-12] MEDS: Insulin Glargine,Human Rec. Analog 100 Units/ML 3 ML Pen SUBCUT SCH (20:27)
[2023-07-13] MEDS: Metoprolol Tartrate 5 MG/5 ML SDV IVPUSH SCH (02:09)
[2023-07-13] MEDS: Diltiazem 100 MG in Sodium Chloride 0.9% 100 ML IV SCH (03:23)
[2023-07-13 05:57] LABS: HEMATOCRIT 28.6 % (38.4-49.7); HEMOGLOBIN 8.9 g/dL (12.9-16.9); MEAN CORPUSCULAR HEMOGLOBIN 30.7 pg (31.6-35.5); MEAN CORPUSCULAR HGB CONC 31.1 g/dL (31.6-35.5); MEAN CORPUSCULAR VOLUME 98.6 fL (81.4-99.0); RED BLOOD CELL COUNT 2.9 M/uL (4.14-5.76); WHITE BLOOD CELL COUNT,WBC 8.3 K/uL (3.2-11.0)
[2023-07-13 06:11] LABS: CREATININE 1.4 mg/dL (0.8-1.3); EST CRCL DRUG DOSING (CG) 48.95 mL/min; MAGNESIUM 2.7 mg/dL (1.8-2.4); POTASSIUM,K 4.7 mmol/L (3.6-5.2)
[2023-07-13 06:12] LABS: INR 1.1
[2023-07-13 06:16] LABS: ANION GAP 12.7 mmol/L (5.0-14.0)
[2023-07-13] MEDS ORDERED: Propofol 200 MG/20 ML SDV ONE (07:34)
[2023-07-13] MEDS: Pantoprazole 40 MG Vial IVPUSH SCH (09:27)
[2023-07-13] MEDS: Bacitracin Oint 28.35 GM Tube TOP PRN (12:16)
[2023-07-13] MEDS: Metoprolol Tartrate 50 MG Tab GTUBE SCH (13:52)
[2023-07-13] MEDS: Diltiazem IR 30 MG Tab PEGTUBE SCH (13:52)
[2023-07-13] MEDS: Bacitracin Oint 28.35 GM Tube TOP SCH (13:53)
[2023-07-13] MEDS: Acetaminophen Soln 650 MG/20.3 ML UD Cup PO PRN (20:46)
[2023-07-13] MEDS: Melatonin 3 MG Tab PO PRN (20:46)
[2023-07-14] MEDS: Acetaminophen Soln 650 MG/20.3 ML UD Cup PEGTUBE PRN (04:11)
[2023-07-14 05:25] LABS: HEMATOCRIT 29.8 % (38.4-49.7); HEMOGLOBIN 9.1 g/dL (12.9-16.9); MEAN CORPUSCULAR HEMOGLOBIN 30.6 pg (31.6-35.5); MEAN CORPUSCULAR HGB CONC 30.5 g/dL (31.6-35.5); MEAN CORPUSCULAR VOLUME 100.3 fL (81.4-99.0); RED BLOOD CELL COUNT 2.97 M/uL (4.14-5.76); WHITE BLOOD CELL COUNT,WBC 9.1 K/uL (3.2-11.0)
[2023-07-14 05:48] LABS: CALCIUM 8.5 mg/dL (8.5-10.1); CREATININE 1.3 mg/dL (0.8-1.3); EST CRCL DRUG DOSING (CG) 52.71 mL/min; POTASSIUM,K 4.5 mmol/L (3.6-5.2)
[2023-07-14 06:06] LABS: ANION GAP 13.5 mmol/L (5.0-14.0)
[2023-07-14] MEDS: Enoxaparin 40 MG/0.4 ML Syringe SUBCUT SCH (08:00)
[2023-07-14] MEDS: Loperamide 1 MG/7.5 ML 7.5 ML UD Cup NGTUBE PRN (10:35)
[2023-07-14] MEDS: Sodium Chloride 0.9% 1,000 ML IV SCH (11:47)
[2023-07-14] MEDS: Metoprolol Tartrate 25 MG Tab GTUBE SCH (15:27)
[2023-07-14] MEDS: Diltiazem IR 30 MG Tab PEGTUBE SCH (15:27)
[2023-07-14] MEDS: Amoxicillin/Clavulanate K 400-57 MG/5 ML Susp 100 ML Bottle PO SCH (21:11)
[2023-07-15] MEDS: Melatonin 3 MG Tab GTUBE PRN (00:04)
[2023-07-15 05:23] LABS: A/G RATIO 0.4 (1.2-2.2); ALANINE AMINOTRANSFERASE,ALT 62 U/L (12-78); ALBUMIN 1.4 g/dL (3.4-5.0); ALKALINE PHOSPHATASE 140 U/L (46-116); ASPARTATE AMNIOTRANSFERASE,AST 44 U/L (15-37); BILIRUBIN TOTAL 0.8 mg/dL (0.2-1.0); BLOOD UREA NITROGEN,BUN 41 mg/dL (7-18); CALCIUM 8.4 mg/dL (8.5-10.1); CARBON DIOXIDE,CO2 29 mmol/L (21-32); CHLORIDE,CL 118 mmol/L (100-108); CREATININE 1.3 mg/dL (0.8-1.3); EST CRCL DRUG DOSING (CG) 52.71 mL/min; ESTIMATED GFR 56 mL/min (>60); GLUCOSE RANDOM 113 mg/dL (74-106); MAGNESIUM 2.3 mg/dL (1.8-2.4); POTASSIUM,K 4.5 mmol/L (3.6-5.2); PROTEIN TOTAL,TP 4.9 g/dL (6.4-8.2); SODIUM,NA 154 mmol/L (140-148)
[2023-07-15 05:24] LABS: ANION GAP 11.5 mmol/L (5.0-14.0)
[2023-07-15] MEDS: Albumin Human 100 ML IV SCH (10:24)
[2023-07-15] MEDS: Insulin Lispro 100 Unit/ML 3 ML KwikPen SUBCUT SCH (12:16)
[2023-07-15] MEDS: Pantoprazole 40 MG Delayed-Release Granules 1 Packet GTUBE SCH (21:01)
[2023-07-16 04:42] LABS: HEMATOCRIT 30.6 % (38.4-49.7); HEMOGLOBIN 9.4 g/dL (12.9-16.9); MEAN CORPUSCULAR HEMOGLOBIN 30.6 pg (31.6-35.5); MEAN CORPUSCULAR HGB CONC 30.7 g/dL (31.6-35.5); MEAN CORPUSCULAR VOLUME 99.7 fL (81.4-99.0); RED BLOOD CELL COUNT 3.07 M/uL (4.14-5.76); WHITE BLOOD CELL COUNT,WBC 7.3 K/uL (3.2-11.0)
[2023-07-16 04:57] LABS: CALCIUM 8.4 mg/dL (8.5-10.1); CREATININE 1.2 mg/dL (0.8-1.3); EST CRCL DRUG DOSING (CG) 57.11 mL/min; POTASSIUM,K 4.7 mmol/L (3.6-5.2)
[2023-07-16 05:14] LABS: ANION GAP 11.7 mmol/L (5.0-14.0)
[2023-07-16] MEDS: Albuterol 0.083% 2.5 MG/3 ML Neb Soln NEB PRN (07:54)
[2023-07-16] MEDS: 50% Dextrose in Water 50 ML Syringe IVPUSH PRN (16:56)
[2023-07-16] MEDS: Insulin Glargine,Human Rec. Analog 100 Units/ML 3 ML Pen SUBCUT SCH (22:23)
[2023-07-17 05:16] LABS: CALCIUM 8.4 mg/dL (8.5-10.1); CREATININE 1.4 mg/dL (0.8-1.3); EST CRCL DRUG DOSING (CG) 48.95 mL/min
[2023-07-17 18:47] LABS: BASOPHILS PERCENT AUTO 0.2 % (0.1-1.3); EOSINOPHILS PERCENT AUTO 1.8 % (0.0-5.4); HEMATOCRIT 31.1 % (38.4-49.7); HEMOGLOBIN 9.7 g/dL (12.9-16.9); IMMATURE GRAN ABSOLUTE AUTO 0.13 K/uL (0.00-0.23); IMMATURE GRAN PERCENT AUTO 1.2 % (0.0-0.7); LYMPHOCYTES ABSOLUTE AUTO 1.96 K/uL (0.8-3.3); LYMPHOCYTES PERCENT AUTO 17.5 % (11.4-47.7); MEAN CORPUSCULAR HGB CONC 31.2 g/dL (31.6-35.5); MEAN CORPUSCULAR VOLUME 99.4 fL (81.4-99.0); MONOCYTES ABSOLUTE AUTO 0.71 K/uL (0.20-0.90); MONOCYTES PERCENT AUTO 6.4 % (3.3-12.6); NEUTROPHILS ABSOLUTE AUTO 8.15 K/uL (1.0-7.6); NEUTROPHILS PERCENT AUTO 72.9 % (40.0-78.1); PLATELET COUNT,PLT 182 K/uL (130-375); RED BLOOD CELL COUNT 3.13 M/uL (4.14-5.76); WHITE BLOOD CELL COUNT,WBC 11.2 K/uL (3.2-11.0)
[2023-07-17 18:48] LABS: BASOPHILS ABSOLUTE AUTO 0.02 K/uL (0.00-0.10)
[2023-07-17 19:11] LABS: LACTIC ACID 2.2 mmol/L (0.4-2.0)
[2023-07-17] MEDS: cefTRIAXone 2 GM in Sodium Chloride 0.9% 50 ML IV SCH (20:54)
[2023-07-17] MEDS: methylPREDNISolone Sodium Succinate 125 MG/2 ML SDV IVPUSH SCH (20:56)
[2023-07-17] MEDS: Doxycycline 100 MG in Sodium Chloride 0.9% 100 ML IV SCH (22:01)
[2023-07-17] MEDS: Insulin Glargine,Human Rec. Analog 100 Units/ML 3 ML Pen SUBCUT SCH (22:34)
[2023-07-18] MEDS: Insulin Glargine,Human Rec. Analog 100 Units/ML 3 ML Pen SUBCUT SCH (06:09)
[2023-07-18 06:17] LABS: HEMATOCRIT 27.9 % (38.4-49.7); HEMOGLOBIN 8.7 g/dL (12.9-16.9); MEAN CORPUSCULAR HEMOGLOBIN 30.9 pg (31.6-35.5); MEAN CORPUSCULAR HGB CONC 31.2 g/dL (31.6-35.5); MEAN CORPUSCULAR VOLUME 98.9 fL (81.4-99.0); RED BLOOD CELL COUNT 2.82 M/uL (4.14-5.76); WHITE BLOOD CELL COUNT,WBC 7.1 K/uL (3.2-11.0)
[2023-07-18 06:37] LABS: CALCIUM 8.4 mg/dL (8.5-10.1); CREATININE 1.5 mg/dL (0.8-1.3); EST CRCL DRUG DOSING (CG) 45.69 mL/min; POTASSIUM,K 5.5 mmol/L (3.6-5.2)
[2023-07-18 06:47] LABS: ANION GAP 16.5 mmol/L (5.0-14.0)
[2023-07-18] MEDS: predniSONE 20 MG Tab PO SCH (09:36)
[2023-07-18] MEDS: Sodium Polystyrene Sulfonate 15 GM/60 ML Susp 60 ML Bot GTUBE ONE (09:37)
[2023-07-18] MEDS: Clindamycin in 0.9 % Sod Chlor 600 MG in Premix Bag 1 BAG IV SCH (09:46)
[2023-07-18] MEDS ORDERED: Doxycycline 100 MG in Sodium Chloride 0.9% 100 ML IV SCH (10:00)
[2023-07-18] MEDS ORDERED: methylPREDNISolone Sodium Succinate 125 MG/2 ML SDV IVPUSH SCH (10:30)
[2023-07-18] MEDS: cefTRIAXone 2 GM in Sodium Chloride 0.9% 50 ML IV SCH (20:03)
[2023-07-19 05:59] LABS: CALCIUM 8.3 mg/dL (8.5-10.1); CREATININE 1.6 mg/dL (0.8-1.3); EST CRCL DRUG DOSING (CG) 42.83 mL/min; POTASSIUM,K 4.2 mmol/L (3.6-5.2)
[2023-07-19 06:09] LABS: ANION GAP 15.2 mmol/L (5.0-14.0)
[2023-07-19] MEDS: Furosemide 40 MG/4 ML VIAL IVPUSH SCH (11:02)
[2023-07-19] MEDS: Cefdinir 300 MG Cap GTUBE SCH (11:02)
[2023-07-19] MEDS: Clindamycin HCl 150 MG Cap GTUBE SCH (15:08)
[2023-07-19] MEDS: Insulin Glargine,Human Rec. Analog 100 Units/ML 3 ML Pen SUBCUT SCH (17:51)
[2023-07-20 05:26] LABS: HEMATOCRIT 28.4 % (38.4-49.7); HEMOGLOBIN 8.6 g/dL (12.9-16.9); MEAN CORPUSCULAR HEMOGLOBIN 30.3 pg (31.6-35.5); MEAN CORPUSCULAR HGB CONC 30.3 g/dL (31.6-35.5); RED BLOOD CELL COUNT 2.84 M/uL (4.14-5.76); WHITE BLOOD CELL COUNT,WBC 9.3 K/uL (3.2-11.0)
[2023-07-20 05:44] LABS: CALCIUM 8.6 mg/dL (8.5-10.1); CREATININE 1.2 mg/dL (0.8-1.3); EST CRCL DRUG DOSING (CG) 57.11 mL/min; POTASSIUM,K 3.7 mmol/L (3.6-5.2)
[2023-07-20 06:02] LABS: ANION GAP 13.7 mmol/L (5.0-14.0)
[2023-07-20] MEDS: Dextrose 5% in Water 1,000 ML IV SCH (14:53)
[2023-07-21 04:22] LABS: ANION GAP 11.1 mmol/L (5.0-14.0); CALCIUM 8.2 mg/dL (8.5-10.1); CREATININE 1.1 mg/dL (0.8-1.3); EST CRCL DRUG DOSING (CG) 62.3 mL/min; POTASSIUM,K 4.1 mmol/L (3.6-5.2)
[2023-07-21 05:08] VITALS: BP 102/58; PULSE 82
== END 2023-07-21 08:05 | DRG 522 ==
LOC: JP.ED 08:01 → JP.MS 12:25 → JP.ICU 15:35 → JP.MS 07-16 12:22
PROVIDERS: ADMIT Hospitalist; ATTEND Internal Medicine
PROC: 0SRR0JA Replacement of Right Hip Joint, Femoral Surface with Synthetic Substitute, Uncemented, Open Approach (ICD-10-PCS; principal; 2023-06-30 07:30)
DX: S72.001A Fracture of unspecified part of neck of right femur, initial encounter for closed fracture (principal); E86.0 Dehydration; I10 Essential (primary) hypertension; I48.91 Unspecified atrial fibrillation; I11.0 Hypertensive heart disease with heart failure; I50.9 Heart failure, unspecified; G62.9 Polyneuropathy, unspecified; Z68.32 Body mass index [BMI] 32.0-32.9, adult; Z66 Do not resuscitate; I25.10 Atherosclerotic heart disease of native coronary artery without angina pectoris; K59.09 Other constipation; K52.9 Noninfective gastroenteritis and colitis, unspecified; M19.90 Unspecified osteoarthritis, unspecified site; Z79.899 Other long term (current) drug therapy; E11.9 Type 2 diabetes mellitus without complications; W01.0XXA Fall on same level from slipping, tripping and stumbling without subsequent striking against object, initial encounter; F32.A Depression, unspecified; E66.9 Obesity, unspecified; Z88.0 Allergy status to penicillin; Z88.2 Allergy status to sulfonamides; Z88.8 Allergy status to other drugs, medicaments and biological substances; Z79.82 Long term (current) use of aspirin; Z79.4 Long term (current) use of insulin; Z79.84 Long term (current) use of oral hypoglycemic drugs; Z79.01 Long term (current) use of anticoagulants; I25.2 Old myocardial infarction; Z95.5 Presence of coronary angioplasty implant and graft; Z86.010 Personal history of colon polyps; Z68.31 Body mass index [BMI] 31.0-31.9, adult; Z86.73 Personal history of transient ischemic attack (TIA), and cerebral infarction without residual deficits; Z90.89 Acquired absence of other organs; Z98.49 Cataract extraction status, unspecified eye; Z98.890 Other specified postprocedural states; Z90.49 Acquired absence of other specified parts of digestive tract; W19.XXXA Unspecified fall, initial encounter
CPT/HCPCS: 0241U; 36415; 36600; 43752; 70450; 70450-26; 70551; 70551-26; 71045; 71045-26; 71275; 71275-26; 72170; 72170-26; 73501-RT; 73552-26-LT; 73552-RT; 73700-26-RT; 73700-RT; 80048; 80053; 80069; 80076; 80162; 80202; 80307; 81001; 82040; 82550; 82803; 82947; 83605; 83735; 83880; 84100; 84132; 84145; 84295; 84478; 84484; 85025; 85027; 85379; 85610; 86140; 87040; 92526-GN; 92610-GN; 93005; 93010; 93306; 94660; 96105-GN; 96361; 96374; 97110-GO; 97110-GP; 97140-GP; 97161-GP; 97165-GO; 97530-GP; 99222; 99232; 99239; 99285; 99285-25; A9270-GY; C1751; C1776; C9113; J0131; J0665; J0690; J0696; J1160; J1170; J1630; J1644; J1650; J1815; J1815-GY; J1940; J2185; J2250; J2270; J2371; J2405; J2543; J2704; J2920; J2930; J3010; J3370; J3475; J3480; J3490; J7030; J7040; J7050; J7060; J7512; J7620; P9047; Q9967